=== PATIENT | female | born 1945 | race Caucasian/White ===

== ENCOUNTER → 2016-03-28 | Outpatient (CLI) | payer OTHER, MEDICARE ==
[~2016-03-28] MED LIST: ACET-1256 PO; AMLO-114 PO; APR25 PO; ASCO500C43 PO; ASPCH81X PO; ATV5X PO; BIOT1CAP3 PO; BISA5TAB PO; CHOL100027 PO; COEN1CAP17 PO; DOCU-94 PO; EFF75 PO; FENO145T26 PO; FERR1TAB23 PO; FOLI1TAB7 PO; FRS/40 PO; GABA-112 PO; GLIP10TA3 PO; HYDR2TAB48 PO; INSU3INJ3 SC; INSUINJ12 SC; ISOS60TA25 PO; LEVO88TA21 PO; LEVO88TA3 PO; MAGN400T6 PO; MCRK20 PO; METF-384 PO; MULTTAB58 PO; NITR0.4S UT; PLV75 PO; POTA20TA16 PO; POTA550T4 PO; PRLSR20 PO; ROSU40TA PO; SENN-63 PO; SOTA80TA55 PO; SPIR100T PO; VENL75CA73 PO; ZOLP5TAB6 PO
[2016-03-28 17:33] LABS: BASO % 0.6 %; BASO ABS # 0.05 K/uL (0-0.2); COMPLETE YES; EOS % 1.3 %; HEMATOCRIT 37.7 % (37-47); IG% 0.3 %; LYMPH % 25.2 %; LYMPH ABS # 2.01 K/uL (1.2-3.4); MEAN CELL VOLUME 87.7 fL (80-100); MEAN CORPUSCULAR HEMOGLOBIN 29.1 pg (25-34); MEAN CORPUSCULAR HGB CONC 33.2 g/dl (32-36); MEAN PLATELET VOLUME 10.7 fL (7.4-10.4); MONO % 8.6 %; PLATELET COUNT 427 K/uL (130-400); WHITE BLOOD COUNT 7.98 K/uL (4.8-10.8)
[2016-03-28 18:12] LABS: URINE PROTIEN/CREAT RATIO 1.6 (0-0.2); URINE TOTAL PROTEIN 238.7 mg/dl (0-11.9)
== END | disposition home or self-care (01) ==
LOC: C.LAB1850 16:15
PROVIDERS: ATTEND Internal Medicine
DX: R80.9 Proteinuria, unspecified (principal); E03.9 Hypothyroidism, unspecified; N28.9 Disorder of kidney and ureter, unspecified; E55.9 Vitamin D deficiency, unspecified

== ENCOUNTER → 2016-05-12 | Outpatient (CLI) | payer OTHER, MEDICARE ==
[~2016-05-12] MED LIST changes: +SOTA80TA20 PO; -SOTA80TA55 PO
== END | disposition home or self-care (01) ==
LOC: C.LABBFT 14:30
PROVIDERS: ATTEND Internal Medicine
DX: E03.9 Hypothyroidism, unspecified (principal)

== ENCOUNTER 2016-07-03 15:31 | Inpatient (IN) | payer OTHER, MEDICARE ==
[2016-07-03] VITALS (13 sets, daily range): BP systolic 114–145; BP diastolic 58–77; PULSE 87–95; TEMP 36.2–37.1; O2SAT 94–100; Ht 167.6 cm; Wt 68.2 kg
[~2016-07-03] VITALS: Ht 167.6 cm; Wt 68.2 kg
[~2016-07-03 15:31] MED LIST changes: -EFF75 PO; -INSU3INJ3 SC; -LEVO88TA3 PO; -POTA20TA16 PO
[2016-07-03] MEDS ORDERED: SODIUM CHLORIDE 0.9% 1000ML 1,000 ML IV STA (16:05)
[2016-07-03] MEDS ORDERED: FAMOTIDINE 20MG/102 ML D5W IV STA (16:05)
[2016-07-03] MEDS ORDERED: ONDANSETRON 8 MG/54 ML D5W IV STA (16:05)
[2016-07-03] MEDS ORDERED: ONDANSETRON INJ 2 MG/ML 2 ML VIAL ONE (16:19)
--- NOTE | 2016-07-03 16:22 | DIAGNOSTIC IMAGING REPORT ---
CHEST ONE VIEW PORTABLE CLINICAL HISTORY: EVALUATE GI BLEED dyspnea COMPARISON STUDY: 12/06/2015 FINDINGS: Prior median sternotomy. Diaphragms smooth. Lungs are clear. IMPRESSION: No acute process. Electronically signed by: Clarence Arevalo M.D. 07/03/2016 4:21 PM Dictated Date/Time: 07/03/2016 4:20 PM
[2016-07-03] MEDS ORDERED: PANTOprazole INJ 80 MG in DEXTROSE 5% 100ML IV SCH (16:30)
[2016-07-03] MEDS ORDERED: PANTOprazole INJ 40 MG in DEXTROSE 5% 100ML IV SCH (16:45)
[2016-07-03] MEDS ORDERED: METOCLOPRAMIDE HCL INJ 5 MG/ML 2 ML VIAL IV STA ×2 (16:50→17:34)
[2016-07-03 16:52] LABS: BASO % 0.2 %; BASO ABS # 0.03 K/uL (0-0.2); EOS % 0.1 %; IG% 0.7 %; LYMPH % 11.6 %; LYMPH ABS # 1.61 K/uL (1.2-3.4); MEAN CELL VOLUME 85.5 fL (80-100); MEAN CORPUSCULAR HEMOGLOBIN 28.3 pg (25-34); MEAN PLATELET VOLUME 10.6 fL (7.4-10.4); MONO % 6.1 %; NEUT % 81.3 %; PLATELET COUNT 337 K/uL (130-400); RED BLOOD COUNT 2.69 M/uL (4.2-5.4); WHITE BLOOD COUNT 13.87 K/uL (4.8-10.8)
[2016-07-03] MEDS: HYDROmorphone INJ 1 MG/ML SYR IV PRN ×5 (17:00→22:53)
[2016-07-03 17:02] LABS: INR 1.1 (0.9-1.1); PARTIAL THROMBOPLASTIN RATIO 0.7; PROTHROMBIN TIME (PATIENT) 11.9 SECONDS (9.0-12.0)
[2016-07-03] MEDS ORDERED: LEVO88TA3 PO (17:07)
[2016-07-03] MEDS ORDERED: EFF75 PO (17:07)
[2016-07-03] MEDS ORDERED: INSU3INJ3 SC (17:07)
[2016-07-03] MEDS ORDERED: POTA20TA16 PO (17:07)
[2016-07-03 17:10] LABS: ISTAT HEMOGLOBIN 6.8 g/dl (12.0-16.0); ISTAT IONIZED CALCIUM 1.09 mmol/l (1.12-1.32)
[2016-07-03 17:11] LABS: ANISOCYTOSIS PRESENT; COMPLETE YES; HYPOCHROMIA PRESENT; POLYCHROMASIA 1+
[2016-07-03 17:21] LABS: ALKALINE PHOSPHATASE 55 U/L (45-117); ALT/SGPT 27 U/L (12-78); BLOOD UREA NITROGEN 59 mg/dl (7-18); BUN/CREATININE RATIO 53.2 (10-20); CALCIUM 8.5 mg/dl (8.5-10.1); CARBON DIOXIDE 23 mmol/L (21-32); CHLORIDE 102 mmol/L (98-107); GLUCOSE 270 mg/dl (70-99)
[2016-07-03 17:24] LABS: POTASSIUM 4.3 mmol/L (3.5-5.1); SODIUM 137 mmol/L (136-145)
[2016-07-03 17:32] LABS: AST/SGOT 19 U/L (15-37); CKMB/CK RATIO 2.6 (0-3.0)
--- NOTE | 2016-07-03 17:52 | DIAGNOSTIC IMAGING REPORT ---
CT OF THE ABDOMEN AND PELVIS WITHOUT CONTRAST CLINICAL HISTORY: Vomiting. Abdominal pain. GI bleed. COMPARISON STUDY: Renal ultrasound August 06, 2015 and right upper quadrant ultrasound October 17, 2015. TECHNIQUE: Axial images of the abdomen and pelvis were obtained without IV contrast. Images were reviewed in the axial, sagittal, and coronal planes. FINDINGS: Visualized portions of the lower chest demonstrate mild cardiomegaly and a small hiatal hernia. There is no pneumatosis, free air or portal venous gas. Minimal biliary ductal dilatation is likely due to prior cholecystectomy. Evaluation of the abdomen and pelvis is significantly compromised given the lack of IV and oral contrast. There is no evidence for a bowel obstruction. The appendix is normal. Apparent wall thickening of the left colon is likely due to underdistention. There is no definite CT evidence for colitis. Sensitivity for detection of mucosal lesions is diminished given CT technique. There is no hydronephrosis. There are stents within the bilateral renal arteries and the celiac axis. This extensive atherosclerotic plaque of the abdominal aorta at the at the level of the renal arteries. There is suspected occlusion of the abdominal aorta at this level as well as occlusion of the SMA although these vessels are suboptimally assessed on this unenhanced exam. No lymphadenopathy is present. No suspicious skeletal lesions are identified. IMPRESSION: 1. No acute process within the abdomen although evaluation compromised given the lack of contrast. 2. Extensive atherosclerotic plaque within the abdominal aorta and major branch vessels with suspected occlusion of the abdominal aorta due to calcified plaque at the level the renal arteries as well as suspected occlusion of the SMA. Vessel patency is difficult to assess on this unenhanced exam. 3. Apparent wall thickening of the left colon is likely due to underdistention. A nonspecific colitis is considered less likely. No definite bowel wall thickening. No pneumatosis, free air or portal venous gas. Decreased sensitivity for detection of mucosal lesions given CT technique. Electronically signed by: Roberto Hyman M.D. 07/03/2016 5:51 PM Dictated Date/Time: 07/03/2016 5:42 PM
[2016-07-03] MEDS ORDERED: NITROGLYCERIN 0.4 MG SL PER TAB CHARGE SL PRN (18:30)
[2016-07-03] MEDS ORDERED: ALUMINUM/MAGNESIUM/SIMETH (MAALOX MAX) 30 ML UDC PO PRN (18:30)
[2016-07-03] MEDS ORDERED: METOPROLOL TARTRATE 1 MG/ML VIAL IV PRN (18:30)
[2016-07-03] MEDS ORDERED: LORAZEPAM 2 MG/ML 1 ML VIAL IV PRN (18:30)
[2016-07-03] MEDS ORDERED: HydrALAZINE HCL 20 MG/ML VIAL IV. PRN (18:30)
[2016-07-03] MEDS ORDERED: POLYETHYLENE (MIRALAX) 17 GM PACK PO PRN (18:30)
[2016-07-03] MEDS ORDERED: MAGNESIUM HYDROXIDE SUSP 30 ML UDC PO PRN (18:30)
--- NOTE | 2016-07-03 18:57 | History and Physical ---
History & Physical Date & Time of Service: July 03, 2016 at 18:36 Chief Complaint: Vomiting Primary Care Physician: Henry Naqvi M.D. History of Present Illness Source: patient, family, clinic records, hospital records 71 y/o female, with PMHx of HTN, anemia, diastolic CHF, CAD s/p CAGB, NSTEMI, paroxysmal a.fib, T2DM, hyperlipidemia, PVD, carotid stenosis s/o carotid endarterectomy, anxiety, and GERD, who presented to the ED because of coffee ground emesis and dark stools x1 day. Episodes of dark emesis and stools begin last evening. Patient takes a daily iron supplement, but states stools have darken since last evening. She takes Plavix and ASA daily. She denies excessive NSAID or alcohol use. She drinks 3-4 cups of coffee per day. She does have a history of GERD. She denies history of PUD or GI bleed. Patient has chronic bilateral lower extremity pain, which has worsened greatly since last evening. Patient denies any fever, chills, sweats, lightheadedness, dizziness, vision changes, CP, palpitations, edema, SOB, wheezing, cough, abdominal pain, nausea, diarrhea, urinary symptoms, numbness/tingling, weakness, anxiety/depression, active bleeding, or new skin discoloration/changes. Past Medical/Surgical History Medical Problems: HTN iron deficiency anemia diastolic CHF CAD s/p CAGB NSTEMI paroxysmal a.fib T2DM hyperlipidemia PVD carotid stenosis s/o carotid endarterectomy anxiety GERD Family History Hypertension Social History Smoking Status: Former Smoker Drug Use: none Marital Status: Occupational Status: employed Immunizations History of Influenza Vaccine: Yes History of Tetanus Vaccine?: Yes History of Pneumococcal: Yes History of Hepatitis B Vaccine: Yes Multi-Drug Resistant Organisms History of MDRO: No Allergies Coded Allergies: Lisinopril (Verified Allergy, Severe, CAN NOT WALK, 12/08/15) Losartan (Verified Allergy, Severe, CAN NOT WALK, 12/08/15) Oxycodone (Verified Adverse Reaction, Unknown, NAUSEA/VOMITING, 06/04/15) Tramadol (Verified Adverse Reaction, Unknown, NAUSEA/VOMITING, 06/04/15) Home Medications Scheduled Amlodipine (Norvasc), 10 MG PO QPM Aspirin (Aspirin Chewable), 324 MG PO QAM Biotin (Biotin), 2 CAP PO BID Bisacodyl (Correctol), 15 MG PO QAM Cholecalciferol (Vitamin D 1000 Unit), 1,000 INTER.UNIT PO BID Clopidogrel Bisulfate (Clopidogrel), 75 MG PO DAILY Coenzyme Q10 (Ubidecarenone) (Co Q 10), 100 MG PO DAILY Docusate Sodium (Colace), 100 MG PO BID Fenofibrate (Tricor ), 145 MG PO QAM Ferrous Sulfate (Iron), 325 MG PO DAILY Folic Acid (Folvite), 1 MG PO QAM Furosemide (Lasix), 40 MG PO Q2D Furosemide (Lasix), 80 MG PO Q2D Gabapentin (Neurontin), 100 MG PO TID Glipizide (Glucotrol), 10 MG PO BID Hydralazine Hcl (Apresoline), 25 MG PO TID Insulin Detemir (Levemir Flextouch), 5 UNITS SC BID Isosorbide Mononitrate Ext Rel (Imdur Ext Rel), 3 TABS PO DAILY Levothyroxine Sodium (Levothyroxine Sodium), 88 MCG PO DAILY Magnesium Oxide (Mag-Ox), 400 MG PO BID Metformin Hcl (Glucophage), 1,000 MG PO BID Multiple Vitamin (Multivitamin), 1 TAB PO QAM Omeprazole (Prilosec), 20 MG PO QAM Potassium Ext Rel (Klor-Con), 20 MEQ PO BID Rosuvastatin Calcium (Crestor), 40 MG PO HS Sotalol Hcl (Betapace), 40 MG PO Q12 Spironolactone (Aldactone), 100 MG PO QAM Venlafaxine Hcl (Effexor), 75 MG PO DAILY Scheduled PRN Acetaminophen (Tylenol), 500 MG PO Q6 PRN for Pain Hydromorphone Hcl (Dilaudid), 2 MG PO q3 hours PRN for Pain Lorazepam (Lorazepam), 0.5 MG PO Q8 PRN for Anxiety Nitroglycerin (Nitrostat), 0.4 MG UT UD PRN for Chest Pain Sennosides (Senokot), 1 TAB PO QAM PRN for Constipation Zolpidem Tartrate (Zolpidem Tartrate), 5 MG PO HS PRN for Sleep Physical Exam Vital Signs Date Time Temp Pulse Resp B/P Pulse Ox O2 Delivery O2 Flow Rate FiO2 07/03/16 18:23 91 20 128/60 99 Nasal Cannula 2.0 07/03/16 18:17 100 Room Air 07/03/16 17:52 93 16 114/64 100 Room Air 07/03/16 17:15 77 24 108/50 07/03/16 16:35 73 07/03/16 15:59 100 Room Air 07/03/16 15:37 37.1 84 18 115/90 100 Room Air General Appearance: + mild distress Head: normocephalic, atraumatic Eyes: normal inspection, PERRL ENT: hearing grossly normal Neck: supple Respiratory/Chest: lungs clear, no respiratory distress, no accessory muscle use Cardiovascular: regular rate, rhythm, + systolic murmur Abdomen/GI: normal bowel sounds, non tender, soft Extremities/Musculoskelatal: no calf tenderness, no pedal edema, + pertinent finding (lower extremities cool to touch ) Neurologic/Psych: alert, normal mood/affect, oriented x 3 Skin: warm/dry, no rash, + pallor Diagnostics Laboratory Results Results Past 24 Hours Test 07/03/16 16:30 07/03/16 16:48 Range/Units White Blood Count 13.87 4.8-10.8 K/uL Red Blood Count 2.69 4.2-5.4 M/uL Hemoglobin 7.6 12.0-16.0 g/dL Hematocrit 23.0 37-47 % Mean Corpuscular Volume 85.5 80-100 fL Mean Corpuscular Hemoglobin 28.3 25-34 pg Mean Corpuscular Hemoglobin Concent 33.0 32-36 g/dl Platelet Count 337 130-400 K/uL Mean Platelet Volume 10.6 7.4-10.4 fL Neutrophils (%) (Auto) 81.3 % Lymphocytes (%) (Auto) 11.6 % Monocytes (%) (Auto) 6.1 % Eosinophils (%) (Auto) 0.1 % Basophils (%) (Auto) 0.2 % Neutrophils # (Auto) 11.27 1.4-6.5 K/uL Lymphocytes # (Auto) 1.61 1.2-3.4 K/uL Monocytes # (Auto) 0.85 0.11-0.59 K/uL Eosinophils # (Auto) 0.01 0-0.5 K/uL Basophils # (Auto) 0.03 0-0.2 K/uL RDW Standard Deviation 41.4 36.4-46.3 fL RDW Coefficient of Variation 13.5 11.5-14.5 % Immature Granulocyte % (Auto) 0.7 % Immature Granulocyte # (Auto) 0.10 0.00-0.02 K/uL Polychromasia 1+ Hypochromasia PRESENT Anisocytosis PRESENT Prothrombin Time 11.9 9.0-12.0 SECONDS Prothromb Time International Ratio 1.1 0.9-1.1 Activated Partial Thromboplast Time 18.0 21.0-31.0 SECONDS Partial Thromboplastin Ratio 0.7 Sodium Level 137 136-145 mmol/L Potassium Level 4.3 3.5-5.1 mmol/L Chloride Level 102 98-107 mmol/L Carbon Dioxide Level 23 21-32 mmol/L Anion Gap 12.0 17.0 16-25 mmol/L Blood Urea Nitrogen 59 7-18 mg/dl Creatinine 1.10 0.60-1.20 mg/dl Est Creatinine Clear Calc Drug Dose 44.5 ml/min Estimated GFR () 58.9 Estimated GFR (Non- 50.8 BUN/Creatinine Ratio 53.2 10-20 Random Glucose 270 70-99 mg/dl Calcium Level 8.5 8.5-10.1 mg/dl Total Bilirubin 0.3 0.2-1 mg/dl Direct Bilirubin < 0.1 0-0.2 mg/dl Aspartate Amino Transf (AST/SGOT) 19 15-37 U/L Alanine Aminotransferase (ALT/SGPT) 27 12-78 U/L Alkaline Phosphatase 55 45-117 U/L Total Creatine Kinase 38 26-192 U/L Creatine Kinase MB 1.0 0.5-3.6 ng/ml Creatine Kinase MB Ratio 2.6 0-3.0 Troponin I < 0.015 0-0.045 ng/ml Total Protein 5.9 6.4-8.2 gm/dl Albumin 2.8 3.4-5.0 gm/dl Lipase 177 73-393 U/L Bedside Hemoglobin 6.8 12.0-16.0 g/dl Bedside Hematocrit 20 37-47 % Bedside Sodium 133 135-144 mEq/L Bedside Potassium 5.6 3.3-5.0 mEq/L Bedside Chloride 99 101-112 mEq/L Bedside Total CO2 24 24-31 mEq/l Bedside Blood Urea Nitrogen 68 7-18 mg/dl Bedside Creatinine 1.0 0.6-1.3 mg/dl Bedside Glucose (other) 274 70-99 mg/dl Bedside Ionized Calcium (Mic) 1.09 1.12-1.32 mmol/l Diagnostic Radiology CHEST ONE VIEW PORTABLE CLINICAL HISTORY: EVALUATE GI BLEED dyspnea COMPARISON STUDY: 12/06/2015 FINDINGS: Prior median sternotomy. Diaphragms smooth. Lungs are clear. IMPRESSION: No acute process. Electronically signed by: Clarence Arevalo M.D. 07/03/2016 4:21 PM Dictated Date/Time: 07/03/2016 4:20 PM The status of this report is Signed. Draft = Not yet reviewed or approved by Radiologist. Signed = Reviewed and approved by Radiologist. CT OF THE ABDOMEN AND PELVIS WITHOUT CONTRAST CLINICAL HISTORY: Vomiting. Abdominal pain. GI bleed. COMPARISON STUDY: Renal ultrasound August 06, 2015 and right upper quadrant ultrasound October 17, 2015. TECHNIQUE: Axial images of the abdomen and pelvis were obtained without IV contrast. Images were reviewed in the axial, sagittal, and coronal planes. FINDINGS: Visualized portions of the lower chest demonstrate mild cardiomegaly and a small hiatal hernia. There is no pneumatosis, free air or portal venous gas. Minimal biliary ductal dilatation is likely due to prior cholecystectomy. Evaluation of the abdomen and pelvis is significantly compromised given the lack of IV and oral contrast. There is no evidence for a bowel obstruction. The appendix is normal. Apparent wall thickening of the left colon is likely due to underdistention. There is no definite CT evidence for colitis. Sensitivity for detection of mucosal lesions is diminished given CT technique. There is no hydronephrosis. There are stents within the bilateral renal arteries and the celiac axis. This extensive atherosclerotic plaque of the abdominal aorta at the at the level of the renal arteries. There is suspected occlusion of the abdominal aorta at this level as well as occlusion of the SMA although these vessels are suboptimally assessed on this unenhanced exam. No lymphadenopathy is present. No suspicious skeletal lesions are identified. IMPRESSION: 1. No acute process within the abdomen although evaluation compromised given the lack of contrast. 2. Extensive atherosclerotic plaque within the abdominal aorta and major branch vessels with suspected occlusion of the abdominal aorta due to calcified plaque at the level the renal arteries as well as suspected occlusion of the SMA. Vessel patency is difficult to assess on this unenhanced exam. 3. Apparent wall thickening of the left colon is likely due to underdistention. A nonspecific colitis is considered less likely. No definite bowel wall thickening. No pneumatosis, free air or portal venous gas. Decreased sensitivity for detection of mucosal lesions given CT technique. Electronically signed by: Roberto Hyman M.D. 07/03/2016 5:51 PM Dictated Date/Time: 07/03/2016 5:42 PM The status of this report is Signed. Draft = Not yet reviewed or approved by Radiologist. Signed = Reviewed and approved by Radiologist. EKG CHRIS BENNETT ID:[id number] 03-JUL-2016 15:59:07 [facility] Normal sinus rhythm ST & T wave abnormality, consider lateral ischemia Prolonged QT Abnormal ECG When compared with ECG of 08-DEC-2015 21:57, Premature ventricular complexes are no longer Present Premature atrial complexes are no longer Present Criteria for Inferior infarct are no longer Present T wave inversion no longer evident in Inferior leads Confirmed by Bernardo Gibbons ([id number]) on 07/03/2016 6:34:06 PM 25mm/s 10mm/mV 150Hz 8.0 SP2 12SL 241 ARLET: 0 Referred by: ED Confirmed By: Bernardo Jimenez. rate 79 BPM NH interval 156 ms QRS duration 82 ms QT/QTc 432/495 ms P-R-T axes 71 -22 132 1945 (71 yr) Female 73in 1lb Room:[facility] Loc:15 Typesetting Supervisor:CEASAR Estrada ind: Impression Assessment and Plan 71 y/o female, with PMHx of HTN, anemia, diastolic CHF, CAD s/p CAGB, NSTEMI, paroxysmal a.fib, T2DM, hyperlipidemia, PVD, carotid stenosis s/o carotid endarterectomy, anxiety, and GERD, who presented to the ED because of coffee ground emesis and dark stools x1 day Anemia due GI bleed w/ hgb of 7.6 on admission: - Admit to tele for cardiac monitoring - Trend cardiac enzymes - Hemoccult positive per ED physician - NPO - IV Protonix drip - Transfusion of 2 units pRBC started in ED - Follow H&H q6 hrs and transfuse PRN - GI consulted, appreciate recommendations Diastolic CHF/CAD s/p CAGB/NSTEMI/paroxysmal a.fib: - Lasix 40 mg Q2D and 80 mg Q2D held due to NPO status- will not add IV Lasix at this time due to low-normal BPs - Hold Imdur 3 tabs PO daily, Sotalol 40 mg q12 hrs, Aldactone 100 mg daily due to NPO status - IV 5 mg Lopressor PRN q6 hrs T2DM: - Continue Levemir 5 units BID - BSG ACHS w/ sliding insulin scale - Hold Glipizide 10 mg BID, Metformin 1000 mg BID HTN: - Norvasc 10 mg daily, Hydralazine 25 mg TID held due to NPO status- resume when able - IV Hydralazine 10 mg PRN Hyperlipidemia/PVD/carotid stenosis s/o carotid endarterectomy: - Hold Fenofibrate 145 mg daily due to NPO status - Hold Plavix 75 mg daily and ASA due to GI bleed - Hold home PO pain medications - IV Dilaudid PRN for pain management Hypothyroidism: IV Synthroid [address] of 88 mcg PO daily Chronic iron deficiency anemia: Iron supplement held due to NPO status Anxiety: - IV Ativan 0.5 mg q6 hrs PRN - Effexor 754 mg daily held due to NPO status GERD: IV Protonix GI Prophylaxis: Maalox PRN, IV Zofran PRN, Colace and/or Milk of Mag PRN DVT prophylaxis: TEDs and SCDs, chemical therapy contraindicated due to GI bleed Code Status: LEVEL I, FULL Level of Care Telemetry Advanced Directives Existing Living Will: Yes Existing Power of Corporate Director Of Human Resources: Yes Resuscitation Status FULL RESUSCITATION VTE Prophylaxis VTE Risk Assessment Done? Y/N: Yes Risk Level: Moderate Given or contraindicated: T.E.D. Stockings, SCD's, Contraindicated
[2016-07-03] MEDS ORDERED: DEXTROSE 50% 50 ML SYR IV PRN (19:00)
[2016-07-03] MEDS ORDERED: GLUCOSE 40% GEL 15 GM TUBE PO PRN (19:00)
[2016-07-03] MEDS ORDERED: GLUCAGON FOR INJ 1 MG VIAL SQ PRN (19:00)
[2016-07-03] MEDS ORDERED: GLUCOSE 10 TABS/TUBE PO PRN (19:00)
--- NOTE | 2016-07-03 19:46 | EMERGENCY ROOM VISIT NOTE ---
History Report prepared by Rosendo: Zack Huntley Under the Supervision of: Dr. Rupert Bates M.D. First contact with patient: 16:05 Chief Complaint: ABDOMINAL PAIN Stated Complaint: VOMITING Nursing Triage Summary: Pt arrives by ALS from home for n/v since 1999 last night. Pt also c/o chronic bilateral leg pain, circulatory issues. Pt took a Dilaudid at home, no relief. Medicated with SL Zofran an route. Hx of RI History of Present Illness The patient is a 71 year old female who presents to the Emergency Room with complaints of persistent nausea and vomiting that began last night at 0000, 16 hours prior to arrival. The patient states that she has been having black emesis and black stools recently. She admits that her stool is usually dark due to iron infusions, but this was much darker than usual. She notes that her stool and emesis were the same color. She takes both Aspirin and Plavix daily. The patient also experiencing pain in her legs due to peripheral artery disease and only has 30% blood flow to her legs. This pain is chronic and takes Dilaudid as needed. The patient denies LOC, headache, fevers, chills, diaphoresis, visual changes, neck pain, chest pain, breathing difficulties, abdominal pain, back pain, urinary symptoms, numbness, weakness, lymphadenopathy, rash, or other complaints. The patient has had multiple heart attacks in the past as well as coronary bypass, diabetes, and a cholecystectomy. Source of History: patient Onset: 16 hours FUR BU[employer]ER Position: other (GI) Quality: other (Nausea and vomiting) Timing: other (Persistent) Associated Symptoms: + melena Note: Black emesis. Review of Systems See HPI for pertinent positives and negatives. A total of ten systems were reviewed and were otherwise negative. 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 (3) ATRIAL FIBRILLATION (4) Chest pain (5) CHOLELITH W CHOLECYS NEC (6) CORON ATHEROSCLER NOS TYPE VESSEL, PECHANGA OR GRAFT (7) DIAB DIPESH WO COMPL, TYPE II OR UNSPEC TYPE, UNCONTROLLED (8) Diabetic peripheral neuropathy associated with type 2 diabetes mellitus (9) ESOPHAGEAL REFLUX (10) GI bleed (11) HYPERLIPIDEMIA NEC/NOS (12) HYPERTENSION NOS (13) Loss of sensation (14) NSTEMI (non-ST elevated myocardial infarction) (15) PVD (peripheral vascular disease) Family History Hypertension Social History Smoking Status: Former Smoker Drug Use: none Marital Status: Housing Status: lives with family Occupation Status: employed Current/Historical Medications Scheduled Amlodipine (Norvasc), 10 MG PO QPM Aspirin (Aspirin Chewable), 324 MG PO QAM Biotin (Biotin), 2 CAP PO BID Bisacodyl (Correctol), 15 MG PO QAM Cholecalciferol (Vitamin D 1000 Unit), 1,000 INTER.UNIT PO BID Clopidogrel Bisulfate (Clopidogrel), 75 MG PO DAILY Coenzyme Q10 (Ubidecarenone) (Co Q 10), 100 MG PO DAILY Docusate Sodium (Colace), 100 MG PO BID Fenofibrate (Tricor ), 145 MG PO QAM Ferrous Sulfate (Iron), 325 MG PO DAILY Folic Acid (Folvite), 1 MG PO QAM Furosemide (Lasix), 40 MG PO Q2D Furosemide (Lasix), 80 MG PO Q2D Gabapentin (Neurontin), 100 MG PO TID Glipizide (Glucotrol), 10 MG PO BID Hydralazine Hcl (Apresoline), 25 MG PO TID Insulin Detemir (Levemir Flextouch), 5 UNITS SC BID Isosorbide Mononitrate Ext Rel (Imdur Ext Rel), 3 TABS PO DAILY Levothyroxine Sodium (Levothyroxine Sodium), 88 MCG PO DAILY Magnesium Oxide (Mag-Ox), 400 MG PO BID Metformin Hcl (Glucophage), 1,000 MG PO BID Multiple Vitamin (Multivitamin), 1 TAB PO QAM Omeprazole (Prilosec), 20 MG PO QAM Potassium Ext Rel (Klor-Con), 20 MEQ PO BID Rosuvastatin Calcium (Crestor), 40 MG PO HS Sotalol Hcl (Betapace), 40 MG PO Q12 Spironolactone (Aldactone), 100 MG PO QAM Venlafaxine Hcl (Effexor), 75 MG PO DAILY Scheduled PRN Acetaminophen (Tylenol), 500 MG PO Q6 PRN for Pain Hydromorphone Hcl (Dilaudid), 2 MG PO q3 hours PRN for Pain Lorazepam (Lorazepam), 0.5 MG PO Q8 PRN for Anxiety Nitroglycerin (Nitrostat), 0.4 MG UT UD PRN for Chest Pain Sennosides (Senokot), 1 TAB PO QAM PRN for Constipation Zolpidem Tartrate (Zolpidem Tartrate), 5 MG PO HS PRN for Sleep Allergies Coded Allergies: Lisinopril (Verified Allergy, Severe, CAN NOT WALK, 12/08/15) Losartan (Verified Allergy, Severe, CAN NOT WALK, 12/08/15) Oxycodone (Verified Adverse Reaction, Unknown, NAUSEA/VOMITING, 06/04/15) Tramadol (Verified Adverse Reaction, Unknown, NAUSEA/VOMITING, 06/04/15) Physical Exam Vital Signs Date Time Temp Pulse Resp B/P Pulse Ox O2 Delivery O2 Flow Rate FiO2 07/03/16 19:41 36.6 90 16 114/58 97 2.0 07/03/16 18:49 88 16 127/58 100 Room Air 07/03/16 18:23 91 20 128/60 99 Nasal Cannula 2.0 07/03/16 18:17 100 Room Air 07/03/16 17:52 93 16 114/64 100 Room Air 07/03/16 17:15 77 24 108/50 07/03/16 16:35 73 07/03/16 15:59 100 Room Air 07/03/16 15:37 37.1 84 18 115/90 100 Room Air Physical Exam GENERAL: Awake, alert, Pale, uncomfortable appearing. HENT: Normocephalic, atraumatic. Oropharynx unremarkable. EYES: Normal conjunctiva. Sclera non-icteric. NECK: Supple. No nuchal rigidity. FROM. No JVD. RESPIRATORY: Clear to auscultation. CARDIAC: Regular rate, normal rhythm. Extremities warm and well perfused. Pulses equal. ABDOMEN: Soft, non-distended. No tenderness to palpation. No rebound or guarding. No masses. RECTAL: Deferred. MUSCULOSKELETAL: Chest examination reveals no tenderness. The back is symmetrical on inspection without obvious abnormality. There is no CVA tenderness to palpation. No joint edema. LOWER EXTREMITIES: Calves are equal size bilaterally and non-tender. No edema. No discoloration. NEURO: Normal sensorium. No sensory or motor deficits noted. SKIN: No rash or jaundice noted. RECTAL: Black stool heme positive. Medical Decision & Procedures ER Provider Diagnostic Interpretation: Radiology results as stated below per my review and radiologist interpretation: CT OF THE ABDOMEN AND PELVIS WITHOUT CONTRAST CLINICAL HISTORY: Vomiting. Abdominal pain. GI bleed. COMPARISON STUDY: Renal ultrasound August 06, 2015 and right upper quadrant ultrasound October 17, 2015. TECHNIQUE: Axial images of the abdomen and pelvis were obtained without IV contrast. Images were reviewed in the axial, sagittal, and coronal planes. FINDINGS: Visualized portions of the lower chest demonstrate mild cardiomegaly and a small hiatal hernia. There is no pneumatosis, free air or portal venous gas. Minimal biliary ductal dilatation is likely due to prior cholecystectomy. Evaluation of the abdomen and pelvis is significantly compromised given the lack of IV and oral contrast. There is no evidence for a bowel obstruction. The appendix is normal. Apparent wall thickening of the left colon is likely due to underdistention. There is no definite CT evidence for colitis. Sensitivity for detection of mucosal lesions is diminished given CT technique. There is no hydronephrosis. There are stents within the bilateral renal arteries and the celiac axis. This extensive atherosclerotic plaque of the abdominal aorta at the at the level of the renal arteries. There is suspected occlusion of the abdominal aorta at this level as well as occlusion of the SMA although these vessels are suboptimally assessed on this unenhanced exam. No lymphadenopathy is present. No suspicious skeletal lesions are identified. IMPRESSION: 1. No acute process within the abdomen although evaluation compromised given the lack of contrast. 2. Extensive atherosclerotic plaque within the abdominal aorta and major branch vessels with suspected occlusion of the abdominal aorta due to calcified plaque at the level the renal arteries as well as suspected occlusion of the SMA. Vessel patency is difficult to assess on this unenhanced exam. 3. Apparent wall thickening of the left colon is likely due to underdistention. A nonspecific colitis is considered less likely. No definite bowel wall thickening. No pneumatosis, free air or portal venous gas. Decreased sensitivity for detection of mucosal lesions given CT technique. Electronically signed by: Roberto Hyman M.D. 07/03/2016 5:51 PM Dictated Date/Time: 07/03/2016 5:42 PM CHEST ONE VIEW PORTABLE CLINICAL HISTORY: EVALUATE GI BLEED dyspnea COMPARISON STUDY: 12/06/2015 FINDINGS: Prior median sternotomy. Diaphragms smooth. Lungs are clear. IMPRESSION: No acute process. Electronically signed by: Clarence Arevalo M.D. 07/03/2016 4:21 PM Dictated Date/Time: 07/03/2016 4:20 PM Laboratory Results 07/03/16 16:30 Red Blood Count 2.69, Mean Corpuscular Volume 85.5, Mean Corpuscular Hemoglobin 28.3, Mean Corpuscular Hemoglobin Concent 33.0, Mean Platelet Volume 10.6, Neutrophils (%) (Auto) 81.3, Lymphocytes (%) (Auto) 11.6, Monocytes (%) (Auto) 6.1, Eosinophils (%) (Auto) 0.1, Basophils (%) (Auto) 0.2, Neutrophils # (Auto) 11.27, Lymphocytes # (Auto) 1.61, Monocytes # (Auto) 0.85, Eosinophils # (Auto) 0.01, Basophils # (Auto) 0.03 Test 07/03/16 16:30 07/03/16 16:48 07/03/16 19:30 07/03/16 19:39 White Blood Count 13.87 K/uL (4.8-10.8) Red Blood Count 2.69 M/uL (4.2-5.4) Hemoglobin 7.6 g/dL (12.0-16.0) Hematocrit 23.0 % (37-47) Mean Corpuscular Volume 85.5 fL (80-100) Mean Corpuscular Hemoglobin 28.3 pg (25-34) Mean Corpuscular Hemoglobin Concent 33.0 g/dl (32-36) Platelet Count 337 K/uL (130-400) Mean Platelet Volume 10.6 fL (7.4-10.4) Neutrophils (%) (Auto) 81.3 % Lymphocytes (%) (Auto) 11.6 % Monocytes (%) (Auto) 6.1 % Eosinophils (%) (Auto) 0.1 % Basophils (%) (Auto) 0.2 % Neutrophils # (Auto) 11.27 K/uL (1.4-6.5) Lymphocytes # (Auto) 1.61 K/uL (1.2-3.4) Monocytes # (Auto) 0.85 K/uL (0.11-0.59) Eosinophils # (Auto) 0.01 K/uL (0-0.5) Basophils # (Auto) 0.03 K/uL (0-0.2) RDW Standard Deviation 41.4 fL (36.4-46.3) RDW Coefficient of Variation 13.5 % (11.5-14.5) Immature Granulocyte % (Auto) 0.7 % Immature Granulocyte # (Auto) 0.10 K/uL (0.00-0.02) Polychromasia 1+ Hypochromasia PRESENT Anisocytosis PRESENT Prothrombin Time 11.9 SECONDS (9.0-12.0) Prothromb Time International Ratio 1.1 (0.9-1.1) Activated Partial Thromboplast Time 18.0 SECONDS (21.0-31.0) Partial Thromboplastin Ratio 0.7 Est Creatinine Clear Calc Drug Dose 44.5 ml/min Total Bilirubin 0.3 mg/dl (0.2-1) Direct Bilirubin < 0.1 mg/dl (0-0.2) Aspartate Amino Transf (AST/SGOT) 19 U/L (15-37) Alanine Aminotransferase (ALT/SGPT) 27 U/L (12-78) Alkaline Phosphatase 55 U/L (45-117) Total Creatine Kinase 38 U/L (26-192) Total Protein 5.9 gm/dl (6.4-8.2) Albumin 2.8 gm/dl (3.4-5.0) Lipase 177 U/L (73-393) Bedside Hemoglobin 6.8 g/dl (12.0-16.0) Bedside Hematocrit 20 % (37-47) Bedside Sodium 133 mEq/L (135-144) Bedside Potassium 5.6 mEq/L (3.3-5.0) Bedside Chloride 99 mEq/L (101-112) Bedside Total CO2 24 mEq/l (24-31) Bedside Blood Urea Nitrogen 68 mg/dl (7-18) Bedside Creatinine 1.0 mg/dl (0.6-1.3) Bedside Glucose (other) 274 mg/dl (70-99) Bedside Ionized Calcium (Mic) 1.09 mmol/l (1.12-1.32) Creatine Kinase MB Ratio (0-3.0) Laboratory results reviewed by me Medications Administered Medications (Trade) Dose Ordered Sig/Angeles Route Start Time Stop Time Status Last Admin Dose Admin Sodium Chloride (Nss 1000ml) 1,000 ml @ 999 mls/hr Q1H1M STAT IV 07/03/16 16:05 07/03/16 17:05 DC 07/03/16 16:51 999 MLS/HR Famotidine 20 mg 20 mg ONE STAT IV 07/03/16 16:05 07/03/16 16:08 DC 07/03/16 16:51 20 MG Pantoprazole Sodium 80 mg/ Dextrose 120 ml @ 480 mls/hr TODAY@1630 IV 07/03/16 16:30 07/03/16 16:44 DC 07/03/16 16:49 480 MLS/HR Pantoprazole Sodium/Dextrose (Protonix Inj/D5 100ml) 100 ml @ 20 mls/hr Q5H IV 07/03/16 16:45 07/03/16 21:44 07/03/16 16:45 20 MLS/HR Ondansetron HCl (Zofran Inj) 4 mg STK-MED ONCE .ROUTE 07/03/16 16:19 07/03/16 16:20 DC 07/03/16 16:19 4 MG Metoclopramide HCl (Reglan Inj) 5 mg NOW STAT IV 07/03/16 16:50 07/03/16 16:52 DC 07/03/16 17:01 5 MG Hydromorphone HCl (Dilaudid Inj) 0.25 mg Q15M PRN IV 07/03/16 17:00 07/17/16 16:59 07/03/16 18:03 0.25 MG Metoclopramide HCl (Reglan Inj) 5 mg NOW STAT IV 07/03/16 17:34 07/03/16 17:36 DC 07/03/16 17:49 5 MG Hydromorphone HCl (Dilaudid Inj) 1 mg Q3H PRN IV 07/03/16 18:30 07/17/16 18:29 07/03/16 19:27 1 MG ECG Indication: vomiting Rate (beats per minute): 79 Findings: T-wave inversion (Lateral), prolonged QT, no ectopy ED Course 1619: The patient was evaluated in room A2. A complete history and physical exam was performed. 1605: Ordered Famotidine 20 mg IV, Pantoprazole 1 , Zofran 8 mg IV, Sodium Chloride 1000 mL @ 999 mL/hr IV. 1630: Ordered Pantoprazole 120 mL @ 480 mL/hr IV. 1645: Ordered Pantoprazole 100 mL @ 20 mL/hr IV. 1550: Ordered Reglan 5 mg IV. 1700: Ordered Dilaudid 0.25 mg . 1728: I checked on the patient at this time. She is back from CT. 173: Ordered Reglan 5 mg IV. 1735: The patient is having increased pain in her legs. She will receive a 2 unit transfusion. 175: I discussed the case with Dr. Radha Mendoza at this time. He will evaluate the patient for further treatment. 190: Patient was reassessed and is resting comfortably. Pending admission. Medical Decision Triage Nursing notes reviewed. The patient's presentation and history were concerning for possible GI bleed. Etiologies such as diverticulosis, AVM, coagulopathy, colitis, inflammatory bowel disease, malignancy,Marisol-Miller tear, esophagitis, peptic ulcer disease , variceal bleed, gastritis, epistaxis, fissure, hemorrhoids, as well as others were entertained. The patient was evaluated. She had dark stool as well as coffee-ground emesis. She was pale. This was very serious concerns about an upper GI bleed. Patient had an i-STAT performed and her hemoglobin was 6.8. This was concerning. The patient was consented for packed red cell transfusion. This was ordered. The patient had a mild leukocytosis. Chemistry panel is unremarkable. Patient was Hemoccult-positive from below. The patient was treated with multiple doses of antinausea medication, Protonix, Pepcid, and also when necessary doses of Dilaudid 0.25 mg for her leg pain. The patient was reassessed multiple times and gradually was improving. Consultation was made with internal medicine. The family and patient were informed. Patient was admitted for further management. The chart was completed utilizing [employer] Speech voice recognition software. Grammatical errors, random word insertions, pronoun errors, and incomplete sentences are an occasional consequence of this system due to software limitations, ambient noise, and hardware issues. Any formal questions or concerns about the content, text, or information contained within the body of this dictation should be directly addressed to the physician for clarification. Consults Time Called: 1748 Consulting Physician: Dr. Radha Mendoza Returned Call: [phone] I discussed the case with Dr. Radha Mendoza at this time. He will evaluate the patient for further treatment. Impression Primary Impression: Gastrointestinal bleed Critical Care I have personally spent greater than 30 minutes of critical care time in the direct management of this patient. This includes bedside care, interpretation of diagnostic studies, and testing, discussion with consultants, patient, and family members, and other required patient management activities. This 30 minutes is in excess of all separately billable procedures. Scribe Attestation The scribe's documentation has been prepared under my direction and personally reviewed by me in its entirety. I confirm that the note above accurately reflects all work, treatment, procedures, and medical decision making performed by me. Departure Information Dispostion Being Evaluated By Hospitalist Referrals Pro,Henry Almaguer M.D. (PCP) Patient Instructions [facility]
[2016-07-03 20:02] LABS: BLOOD UREA NITROGEN 52 mg/dl (7-18); BUN/CREATININE RATIO 55.8 (10-20); CALCIUM 8.3 mg/dl (8.5-10.1); CARBON DIOXIDE 24 mmol/L (21-32); CHLORIDE 104 mmol/L (98-107); CREATININE 0.94 mg/dl (0.60-1.20); GLUCOSE 316 mg/dl (70-99); POTASSIUM 3.8 mmol/L (3.5-5.1); SODIUM 138 mmol/L (136-145)
[2016-07-03] MEDS: ONDANSETRON INJ 2 MG/ML 2 ML VIAL IV PRN (20:23)
[2016-07-03 20:33] LABS: BETA-HYDROXYBUTYRATE 4.25 mg/dL (0.2-2.81)
[2016-07-03] MEDS: PANTOprazole INJ 40 MG in DEXTROSE 5% 100ML IV SCH (22:29)
[2016-07-03] MEDS: INSULIN DETEMIR FLEXPEN/FLEX TOUCH 100 UNITS/ML 3ML SC SCH (22:33)
[2016-07-03] MEDS: INSULIN ASPART 100 UNITS/ML 3 ML PEN SC SCH (22:33)
[2016-07-04 00:27] VITALS: BP 132/77; PULSE 93; TEMP 37; O2SAT 95
[2016-07-04 00:44] LABS: URINE APPEARANCE CLEAR (CLEAR); URINE BILIRUBIN NEG (NEG); URINE COLOR YELLOW; URINE EPITHELIAL CELL AUTO 0-5 /lpf (0-5); URINE NITRITE NEG (NEG); URINE PH 5.5 (4.5-7.5); URINE SPECIFIC GRAVITY 1.021 (1.000-1.030); UROBILINOGEN NEG (NEG)
[2016-07-04 01:02] LABS: MANUAL MICROSCOPIC REQUIRED? NO; REVIEW REQ? YES
[2016-07-04] MEDS: PANTOprazole INJ 40 MG in DEXTROSE 5% 100ML IV SCH ×2 (02:08→08:45)
[2016-07-04] MEDS: ONDANSETRON INJ 2 MG/ML 2 ML VIAL IV PRN ×2 (02:08→07:36)
[2016-07-04 03:10] LABS: HEMATOCRIT 30.5 % (37-47)
[2016-07-04 03:26] VITALS: BP 121/73; PULSE 92; TEMP 36.3; O2SAT 97
[2016-07-04] MEDS ORDERED: OPTIRAY 320 IV PRN (05:15)
[2016-07-04] MEDS ORDERED: SODIUM CHLORIDE 0.9% 1000ML 1,000 ML IV SCH (05:15)
[2016-07-04] MEDS ORDERED: NITROGLYCERIN 2% OINTMENT 30GM TUBE ONE (05:21)
[2016-07-04 05:25] LABS: HEMATOCRIT 29.6 % (37-47); MEAN CELL VOLUME 85.5 fL (80-100); MEAN CORPUSCULAR HEMOGLOBIN 28.6 pg (25-34); MEAN CORPUSCULAR HGB CONC 33.4 g/dl (32-36); MEAN PLATELET VOLUME 10.8 fL (7.4-10.4); PLATELET COUNT 320 K/uL (130-400); RED BLOOD COUNT 3.46 M/uL (4.2-5.4)
[2016-07-04] MEDS ORDERED: NITROGLYCERIN 2% OINTMENT 30GM TUBE EXT SCH (05:30)
[2016-07-04 05:43] LABS: BUN/CREATININE RATIO 42.5 (10-20); CALCIUM 8.6 mg/dl (8.5-10.1); CREATININE 1.1 mg/dl (0.60-1.20); MAGNESIUM 2.3 mg/dl (1.8-2.4); POTASSIUM 3.9 mmol/L (3.5-5.1)
[2016-07-04] MEDS ORDERED: PIPERACILL/TAZOBAC CONSULT ACTIVE PRN (06:15)
[2016-07-04] MEDS ORDERED: PIPERACILL/TAZOBAC IV 3.375 GM in DEXTROSE 5% 100ML 100 ML IV SCH ×2 (06:15→12:00)
[2016-07-04] MEDS ORDERED: VANCOMYCIN INJ 1,400 MG in SODIUM CHLORIDE 0.9% 500ML 500 ML IV SCH (06:15)
[2016-07-04] MEDS ORDERED: VANCOMYCIN CONSULT ACTIVE PRN (06:15)
--- NOTE | 2016-07-04 06:34 | DIAGNOSTIC IMAGING REPORT ---
CHEST ONE VIEW PORTABLE CLINICAL HISTORY: Abdominal pain COMPARISON STUDY: 07/03/2016 FINDINGS: The cardiac and mediastinal contours remain stable. There are postsurgical changes of midline sternotomy. There is evidence of diffuse elevation of the interstitium, finding which developed since the prior study. This is asymmetric on the right. The findings are suggestive of asymmetric interstitial edema. No free air is visualized. There is no lobar consolidation.[ IMPRESSION: 1. Interval development of asymmetric interstitial edema right greater than left 2. No evidence of free intraperitoneal air Electronically signed by: Medhat Fernandez M.D. 07/04/2016 6:33 AM Dictated Date/Time: 07/04/2016 6:32 AM
--- NOTE | 2016-07-04 06:57 | History and Physical ---
History & Physical Date & Time of Service: July 04, 2016 at 06:33 Chief Complaint: Gi Bleed Primary Care Physician: Henry Naqvi M.D. History of Present Illness Source: patient, spouse 71 y/o female, with PMHx of HTN, anemia, diastolic CHF, CAD s/p CAGB, NSTEMI, paroxysmal a.fib, T2DM, hyperlipidemia, PVD, carotid stenosis s/o carotid endarterectomy, anxiety, and GERD, who presented to the ED because of coffee ground emesis and dark stools x1 day. Episodes of dark emesis and stools begin last evening. Patient takes a daily iron supplement, but states stools have darken since last evening. She takes Plavix and ASA daily. She denies excessive NSAID or alcohol use. She drinks 3-4 cups of coffee per day. She does have a history of GERD. She denies history of PUD or GI bleed. Patient has chronic bilateral lower extremity pain, which has worsened greatly since last evening. Patient denies any fever, chills, sweats, lightheadedness, dizziness, vision changes, CP, palpitations, edema, SOB, wheezing, cough, abdominal pain, nausea, diarrhea, urinary symptoms, numbness/tingling, weakness, anxiety/depression, active bleeding, or new skin discoloration/changes. I got a call for consult this pt for abdominal pain, pt just came back from radiology for CTA, pt is still have some abdominal pain, no vomiting, pt also C/ O bilt legs pain, pt passed some dark color stool last night. pt took 4 ASA( 81MG) + plavix every day. Past Medical/Surgical History Medical Problems: (1) AORTOCORONARY BYPASS Status: Resolved (2) ATHEROSCL [place] ARTER EXTREM W INTERMIT CLAUDICAT Status: Chronic (3) ATRIAL FIBRILLATION Status: Chronic (4) CHOLELITH W CHOLECYS NEC Status: Resolved (5) CORON ATHEROSCLER NOS TYPE VESSEL, [place] OR GRAFT Status: Chronic (6) DIAB DIPESH WO COMPL, TYPE II OR UNSPEC TYPE, UNCONTROLLED Status: Chronic (7) ESOPHAGEAL REFLUX Status: Chronic (8) HYPERLIPIDEMIA NEC/NOS Status: Chronic (9) HYPERTENSION NOS Status: Chronic Family History Hypertension Social History Smoking Status: Former Smoker Alcohol Use: occasionally Drug Use: none Marital Status: Occupational Status: employed Immunizations History of Influenza Vaccine: Yes History of Tetanus Vaccine?: Yes History of Pneumococcal: Yes History of Hepatitis B Vaccine: Yes Multi-Drug Resistant Organisms History of MDRO: No Allergies Coded Allergies: Lisinopril (Verified Allergy, Severe, CAN NOT WALK, 12/08/15) Losartan (Verified Allergy, Severe, CAN NOT WALK, 12/08/15) Oxycodone (Verified Adverse Reaction, Unknown, NAUSEA/VOMITING, 06/04/15) Tramadol (Verified Adverse Reaction, Unknown, NAUSEA/VOMITING, 06/04/15) Home Medications Scheduled Amlodipine (Norvasc), 10 MG PO QPM Aspirin (Aspirin Chewable), 324 MG PO QAM Biotin (Biotin), 2 CAP PO BID Bisacodyl (Correctol), 15 MG PO QAM Cholecalciferol (Vitamin D 1000 Unit), 1,000 INTER.UNIT PO BID Clopidogrel Bisulfate (Clopidogrel), 75 MG PO DAILY Coenzyme Q10 (Ubidecarenone) (Co Q 10), 100 MG PO DAILY Docusate Sodium (Colace), 100 MG PO BID Fenofibrate (Tricor ), 145 MG PO QAM Ferrous Sulfate (Iron), 325 MG PO DAILY Folic Acid (Folvite), 1 MG PO QAM Furosemide (Lasix), 40 MG PO Q2D Furosemide (Lasix), 80 MG PO Q2D Gabapentin (Neurontin), 100 MG PO TID Glipizide (Glucotrol), 10 MG PO BID Hydralazine Hcl (Apresoline), 25 MG PO TID Insulin Detemir (Levemir Flextouch), 5 UNITS SC BID Isosorbide Mononitrate Ext Rel (Imdur Ext Rel), 3 TABS PO DAILY Levothyroxine Sodium (Levothyroxine Sodium), 88 MCG PO DAILY Magnesium Oxide (Mag-Ox), 400 MG PO BID Metformin Hcl (Glucophage), 1,000 MG PO BID Multiple Vitamin (Multivitamin), 1 TAB PO QAM Omeprazole (Prilosec), 20 MG PO QAM Potassium Ext Rel (Klor-Con), 20 MEQ PO BID Rosuvastatin Calcium (Crestor), 40 MG PO HS Sotalol Hcl (Betapace), 40 MG PO Q12 Spironolactone (Aldactone), 100 MG PO QAM Venlafaxine Hcl (Effexor), 75 MG PO DAILY Scheduled PRN Acetaminophen (Tylenol), 500 MG PO Q6 PRN for Pain Hydromorphone Hcl (Dilaudid), 2 MG PO q3 hours PRN for Pain Lorazepam (Lorazepam), 0.5 MG PO Q8 PRN for Anxiety Nitroglycerin (Nitrostat), 0.4 MG UT UD PRN for Chest Pain Sennosides (Senokot), 1 TAB PO QAM PRN for Constipation Zolpidem Tartrate (Zolpidem Tartrate), 5 MG PO HS PRN for Sleep Review of Systems Constitutional: No chills, No fatigue, No fever, No problem reported, No sweats , No weakness, No weight loss Eyes: No diplopia, No discharge, No eye pain, No problem reported, No redness, No worsening of vision ENT: No dental problems, No hearing loss, No nasal symptoms, No problem reported, No sore throat, No tinnitus, No trouble swallowing, No unusual epistaxis Respiratory: No cough, No dyspnea at rest, No dyspnea on exertion, No hemoptysis, No problem reported, No shortness of breath, No sputum, No wheezing Cardiovascular: + problem reported (CABG, CHF, CAD, ) Genitourinary - Female: No dysmenorrhea, No dysuria, No hematuria, No menorrhagia, No metrorrhagia, No , No problem reported, No rash, No urinary frequency, No urinary incontinence, No urinary retention, No urinary urgency, No vaginal bleeding, No vaginal discharge, No vaginal itching, No vulvodynia Neurologic: No balance problems, No memory loss, No numbness/tingling, No paralysis, No problem reported, No vertigo, No weakness Psychiatric: + depression symptoms Endocrine: + problem reported (DM) Hematologic / Lymphatic: + abnormal bleeding/bruising, + problem reported (GI bleeding) Physical Exam Vital Signs Date Time Temp Pulse Resp B/P Pulse Ox O2 Delivery O2 Flow Rate FiO2 07/04/16 04:00 Nasal Cannula 3.0 07/04/16 03:26 36.3 92 22 121/73 97 Nasal Cannula 4.0 07/04/16 00:27 37.0 93 18 132/77 95 07/04/16 00:00 Nasal Cannula 3.0 07/03/16 23:37 36.8 94 18 133/77 94 07/03/16 23:25 36.9 93 17 124/70 96 07/03/16 23:00 37.0 90 17 131/74 96 07/03/16 22:54 37.1 94 18 145/75 95 07/03/16 22:41 36.2 92 18 137/74 94 07/03/16 22:19 36.7 87 18 128/70 94 Nasal Cannula 4.0 07/03/16 21:46 36.7 92 16 127/66 95 07/03/16 21:30 92 16 127/66 95 3.0 07/03/16 21:00 36.7 94 20 134/73 95 3.0 07/03/16 20:39 36.6 95 96 2.0 07/03/16 20:30 96 16 120/74 94 Room Air 07/03/16 20:08 36.5 95 16 135/72 97 2.0 07/03/16 19:54 36.6 94 18 128/65 97 2.0 07/03/16 19:41 36.6 90 16 114/58 97 2.0 07/03/16 18:49 88 16 127/58 100 Room Air 07/03/16 18:23 91 20 128/60 99 Nasal Cannula 2.0 07/03/16 18:17 100 Room Air 07/03/16 17:52 93 16 114/64 100 Room Air 07/03/16 17:15 77 24 108/50 07/03/16 16:35 73 07/03/16 15:59 100 Room Air 07/03/16 15:37 37.1 84 18 115/90 100 Room Air General Appearance: WD/WN, + moderate distress Head: normocephalic, atraumatic Eyes: normal inspection, PERRL ENT: hearing grossly normal Neck: supple Respiratory/Chest: lungs clear, no respiratory distress, no accessory muscle use Cardiovascular: regular rate, rhythm, no JVD, no murmur, + systolic murmur Abdomen/GI: normal bowel sounds, non tender, soft, + tenderness (tenderness marnie-umbilical area, no rebound pain, no distended, no guarding, , rectal exam- dark stool, no fresh blood, no mass on rectal wall, no tenderness, ) Extremities/Musculoskelatal: normal inspection (decrease bilt femoral pulse, bilt groin scar, bilt legs skin color- normal, warm, could not feel pop and PD pulse, ), no calf tenderness, no pedal edema, + pertinent finding (lower extremities cool to touch ) Neurologic/Psych: alert, normal mood/affect, oriented x 3 Skin: warm/dry, no rash, + pallor Diagnostics Laboratory Results Results Past 24 Hours Test 07/03/16 16:30 07/03/16 16:48 07/03/16 19:15 07/03/16 19:30 Range/Units White Blood Count 13.87 4.8-10.8 K/uL Red Blood Count 2.69 4.2-5.4 M/uL Hemoglobin 7.6 12.0-16.0 g/dL Hematocrit 23.0 37-47 % Mean Corpuscular Volume 85.5 80-100 fL Mean Corpuscular Hemoglobin 28.3 25-34 pg Mean Corpuscular Hemoglobin Concent 33.0 32-36 g/dl Platelet Count 337 130-400 K/uL Mean Platelet Volume 10.6 7.4-10.4 fL Neutrophils (%) (Auto) 81.3 % Lymphocytes (%) (Auto) 11.6 % Monocytes (%) (Auto) 6.1 % Eosinophils (%) (Auto) 0.1 % Basophils (%) (Auto) 0.2 % Neutrophils # (Auto) 11.27 1.4-6.5 K/uL Lymphocytes # (Auto) 1.61 1.2-3.4 K/uL Monocytes # (Auto) 0.85 0.11-0.59 K/uL Eosinophils # (Auto) 0.01 0-0.5 K/uL Basophils # (Auto) 0.03 0-0.2 K/uL RDW Standard Deviation 41.4 36.4-46.3 fL RDW Coefficient of Variation 13.5 11.5-14.5 % Immature Granulocyte % (Auto) 0.7 % Immature Granulocyte # (Auto) 0.10 0.00-0.02 K/uL Polychromasia 1+ Hypochromasia PRESENT Anisocytosis PRESENT Prothrombin Time 11.9 9.0-12.0 SECONDS Prothromb Time International Ratio 1.1 0.9-1.1 Activated Partial Thromboplast Time 18.0 21.0-31.0 SECONDS Partial Thromboplastin Ratio 0.7 Sodium Level 137 136-145 mmol/L Potassium Level 4.3 3.5-5.1 mmol/L Chloride Level 102 98-107 mmol/L Carbon Dioxide Level 23 21-32 mmol/L Anion Gap 12.0 17.0 16-25 mmol/L Blood Urea Nitrogen 59 7-18 mg/dl Creatinine 1.10 0.60-1.20 mg/dl Est Creatinine Clear Calc Drug Dose 44.5 ml/min Estimated GFR () 58.9 Estimated GFR (Non- 50.8 BUN/Creatinine Ratio 53.2 10-20 Random Glucose 270 70-99 mg/dl Calcium Level 8.5 8.5-10.1 mg/dl Total Bilirubin 0.3 0.2-1 mg/dl Direct Bilirubin < 0.1 0-0.2 mg/dl Aspartate Amino Transf (AST/SGOT) 19 15-37 U/L Alanine Aminotransferase (ALT/SGPT) 27 12-78 U/L Alkaline Phosphatase 55 45-117 U/L Total Creatine Kinase 38 26-192 U/L Creatine Kinase MB 1.0 0.5-3.6 ng/ml Creatine Kinase MB Ratio 2.6 0-3.0 Troponin I < 0.015 0-0.045 ng/ml Total Protein 5.9 6.4-8.2 gm/dl Albumin 2.8 3.4-5.0 gm/dl Lipase 177 73-393 U/L Bedside Hemoglobin 6.8 12.0-16.0 g/dl Bedside Hematocrit 20 37-47 % Bedside Sodium 133 135-144 mEq/L Bedside Potassium 5.6 3.3-5.0 mEq/L Bedside Chloride 99 101-112 mEq/L Bedside Total CO2 24 24-31 mEq/l Bedside Blood Urea Nitrogen 68 7-18 mg/dl Bedside Creatinine 1.0 0.6-1.3 mg/dl Bedside Glucose (other) 274 70-99 mg/dl Bedside Ionized Calcium (Mic) 1.09 1.12-1.32 mmol/l Test 07/03/16 19:39 07/03/16 22:27 07/04/16 00:30 07/04/16 00:48 Range/Units Sodium Level 138 136-145 mmol/L Potassium Level 3.8 3.5-5.1 mmol/L Chloride Level 104 98-107 mmol/L Carbon Dioxide Level 24 21-32 mmol/L Anion Gap 10.0 3-11 mmol/L Blood Urea Nitrogen 52 7-18 mg/dl Creatinine 0.94 0.60-1.20 mg/dl Est Creatinine Clear Calc Drug Dose 52.1 ml/min Estimated GFR () 71.2 Estimated GFR (Non- 61.5 BUN/Creatinine Ratio 55.8 10-20 Random Glucose 316 70-99 mg/dl Calcium Level 8.3 8.5-10.1 mg/dl Creatine Kinase MB 1.9 0.5-3.6 ng/ml Troponin I 0.066 0-0.045 ng/ml Beta-Hydroxybutyric Acid 4.25 0.2-2.81 mg/dL Bedside Glucose 306 286 70-90 mg/dl Urine Color YELLOW Urine Appearance CLEAR CLEAR Urine pH 5.5 4.5-7.5 Urine Specific [place] 1.021 1.000-1.030 Urine Protein 1+ NEG Urine Glucose (UA) TRACE NEG Urine Ketones NEG NEG Urine Occult Blood TRACE NEG Urine Nitrite NEG NEG Urine Bilirubin NEG NEG Urine Urobilinogen NEG NEG Urine Leukocyte Esterase NEG NEG Urine WBC (Auto) 1-5 0-5 /hpf Urine RBC (Auto) 0-4 0-4 /hpf Urine Hyaline Casts (Auto) 1-5 0-5 /lpf Urine Epithelial Cells (Auto) 0-5 0-5 /lpf Urine Bacteria (Auto) NEG NEG Urine Yeast (Auto) NONE PRSENT Test 07/04/16 03:00 07/04/16 05:12 Range/Units Hemoglobin 10.2 9.9 12.0-16.0 g/dL Hematocrit 30.5 29.6 37-47 % Creatine Kinase MB 70.7 108.6 0.5-3.6 ng/ml Creatine Kinase MB Ratio 0-3.0 Troponin I 8.310 16.500 0-0.045 ng/ml White Blood Count 18.10 4.8-10.8 K/uL Red Blood Count 3.46 4.2-5.4 M/uL Mean Corpuscular Volume 85.5 80-100 fL Mean Corpuscular Hemoglobin 28.6 25-34 pg Mean Corpuscular Hemoglobin Concent 33.4 32-36 g/dl RDW Standard Deviation 43.2 36.4-46.3 fL RDW Coefficient of Variation 14.0 11.5-14.5 % Platelet Count 320 130-400 K/uL Mean Platelet Volume 10.8 7.4-10.4 fL Sodium Level 138 136-145 mmol/L Potassium Level 3.9 3.5-5.1 mmol/L Chloride Level 104 98-107 mmol/L Carbon Dioxide Level 25 21-32 mmol/L Anion Gap 9.0 3-11 mmol/L Blood Urea Nitrogen 47 7-18 mg/dl Creatinine 1.10 0.60-1.20 mg/dl Est Creatinine Clear Calc Drug Dose 44.5 ml/min Estimated GFR () 58.9 Estimated GFR (Non- 50.8 BUN/Creatinine Ratio 42.5 10-20 Random Glucose 284 70-99 mg/dl Lactic Acid Level 2.7 0.4-2.0 mmol/L Calcium Level 8.6 8.5-10.1 mg/dl Magnesium Level 2.3 1.8-2.4 mg/dl Microbiology Results 07/04/16 Urine Culture, Received Pending Diagnostic Radiology CT OF THE ABDOMEN AND PELVIS WITHOUT CONTRAST CLINICAL HISTORY: Vomiting. Abdominal pain. GI bleed. COMPARISON STUDY: Renal ultrasound August 06, 2015 and right upper quadrant ultrasound October 17, 2015. TECHNIQUE: Axial images of the abdomen and pelvis were obtained without IV contrast. Images were reviewed in the axial, sagittal, and coronal planes. FINDINGS: Visualized portions of the lower chest demonstrate mild cardiomegaly and a small hiatal hernia. There is no pneumatosis, free air or portal venous gas. Minimal biliary ductal dilatation is likely due to prior cholecystectomy. Evaluation of the abdomen and pelvis is significantly compromised given the lack of IV and oral contrast. There is no evidence for a bowel obstruction. The appendix is normal. Apparent wall thickening of the left colon is likely due to underdistention. There is no definite CT evidence for colitis. Sensitivity for detection of mucosal lesions is diminished given CT technique. There is no hydronephrosis. There are stents within the bilateral renal arteries and the celiac axis. This extensive atherosclerotic plaque of the abdominal aorta at the at the level of the renal arteries. There is suspected occlusion of the abdominal aorta at this level as well as occlusion of the SMA although these vessels are suboptimally assessed on this unenhanced exam. No lymphadenopathy is present. No suspicious skeletal lesions are identified. IMPRESSION: 1. No acute process within the abdomen although evaluation compromised given the lack of contrast. 2. Extensive atherosclerotic plaque within the abdominal aorta and major branch vessels with suspected occlusion of the abdominal aorta due to calcified plaque at the level the renal arteries as well as suspected occlusion of the SMA. Vessel patency is difficult to assess on this unenhanced exam. 3. Apparent wall thickening of the left colon is likely due to underdistention. A nonspecific colitis is considered less likely. No definite bowel wall thickening. No pneumatosis, free air or portal venous gas. Decreased sensitivity for detection of mucosal lesions given CT technique. Impression Assessment and Plan IMP: Acute VT, GI bleeding, severe abdominal aortic calcification, I reviewed CT scan with radiologist- severe abdominal aortic calcification, no bowel edema or pneumotosis I recommend- youth career specialist, GI doctor, vascular surgeon consult, Iv fluid, repeat lactic acid and H/H, every 6 hours, I D/W pt and her about Dx , treatment plan and critical condition, pt's wants to transfer to [facility] for further Dx and treatment, base on pt had all procedures done on [facility]. will F/U, Advanced Directives Existing Living Will: Yes Existing Power of Masonry Contractor: Yes VTE Prophylaxis VTE Risk Assessment Done? Y/N: Yes Risk Level: Moderate Given or contraindicated: T.E.D. Stockings, SCD's, Contraindicated Note Total Time: Critical Care > 74 minutes
--- NOTE | 2016-07-04 07:00 | DIAGNOSTIC IMAGING REPORT ---
ABDOMEN AND PELVIS CT WITH IV CONTRAST CT DOSE: 325.67 mGy.cm HISTORY: Pain ongoing abdominal pain ?mesenteric ischemia TECHNIQUE: Multiaxial CT images of the abdomen and pelvis were performed following the use of intravenous contrast. COMPARISON STUDY: None. FINDINGS: Lung bases demonstrate components of pulmonary vascular congestion versus basilar inflammatory change. Configuration of liver spleen and pancreas appear unremarkable. There is evidence for extensive atherosclerotic change of the abdominal and pelvic arterial vasculature. Stents involving the celiac axis. Mesenteric artery and bilateral renal arteries are present. There is no significant flow through the celiac axis stent. Partial collateral formation may be present. Superior mesenteric artery also shows a stent though there is severe narrowing of that vessel. Significant narrowing of the renal arteries is again noted. Severe atherosclerotic change abdominal aorta with associated narrowing is noted. No evidence for aneurysm. Nonobstructive bowel pattern. IMPRESSION: Severe degenerative change of the abdominal and to lesser extent pelvic arterial vasculature. 2. This is severe narrowing of multiple vessels as described. 3. Bibasilar infiltrative versus pulmonary edematous change. Electronically signed by: Clarence Arevalo M.D. 07/04/2016 6:59 AM Dictated Date/Time: 07/04/2016 6:52 AM
--- NOTE | 2016-07-04 07:06 | DIAGNOSTIC IMAGING REPORT ---
KUB CLINICAL HISTORY: Abdominal pain COMPARISON STUDY: No previous studies for comparison. FINDINGS: There is no pathologic bowel dilatation. There are extensive atheromatous calcifications present. There are upper abdominal stents, likely representing a left renal artery stent and celiac stent. IMPRESSION: 1. No pathologic bowel dilatation 2. Extensive vascular calcification Electronically signed by: Medhat Fernandez M.D. 07/04/2016 7:05 AM Dictated Date/Time: 07/04/2016 7:04 AM
[2016-07-04] MEDS: HYDROmorphone INJ 1 MG/ML SYR IV PRN (07:25)
[2016-07-04] MEDS ORDERED: PERFLUTREN LIPID MICROSPHERE (DEFINITY) IV ONE (07:25)
[2016-07-04 07:26] VITALS: BP 126/70; PULSE 103; TEMP 36.9; O2SAT 98
[2016-07-04] MEDS ORDERED: METOPROLOL TARTRATE 1 MG/ML VIAL IV STA (07:54)
[2016-07-04 08:00] VITALS: O2SAT 98
[2016-07-04] MEDS: INSULIN DETEMIR FLEXPEN/FLEX TOUCH 100 UNITS/ML 3ML SC SCH (08:17)
[2016-07-04] MEDS: INSULIN ASPART 100 UNITS/ML 3 ML PEN SC SCH (08:17)
[2016-07-04] MEDS ORDERED: LEVOTHYROXINE SODIUM INJ 44 MCG in SYRINGE 0 ML IV SCH (09:00)
--- NOTE | 2016-07-04 09:15 | Discharge Summary ---
Discharge Summary Date of Service July 04, 2016. (Rhonda Scott MD) Discharge Summary Admission Date: July 03, 2016 at 19:34 Discharge Date: July 04, 2016 Discharge Disposition: Home Principal Diagnosis: GI bleed, NSTEMI, SMA occlusion Immunizations: Have You Had Influenza Vaccine: Yes History of Tetanus Vaccine?: Yes History of Pneumococcal: Yes History of Hepatitis B Vaccine: Yes Consultations: Gastroenterology, cardiology, General surgery (Rhonda Scott MD) Discharge Disposition: Acute care facility (Angelique Miller MD) Discharge Exam did not have any new episodes of hematemesis or melena overnight. continues to complain of abdominal pain and bilateral lower extremity pain which is somewhat better with pain medications. denies CP/SOB, palpitations currently Review of Systems: Constitutional: No chills, No fever ENT: No hearing loss Respiratory: No cough, No shortness of breath Cardiovascular: No chest pain Abdomen: + pain Musculoskeletal: + problem reported (bialteral lower extremity swelling) Genitourinary - Female: No dysuria, No urinary frequency Neurologic: No memory loss (Rhonda Scott MD) Hospital Course 71 y/o female, with PMHx of HTN, anemia, diastolic CHF, CAD s/p CAGB, NSTEMI, paroxysmal a.fib, T2DM, hyperlipidemia, PVD, carotid stenosis s/o carotid endarterectomy, anxiety, and GERD, who presented to the ED because of coffee ground emesis and dark stools x1 day. Episodes of dark emesis and stools begin last evening. Patient takes a daily iron supplement, but states stools have darken since last evening. She takes Plavix and ASA daily. She denies excessive NSAID or alcohol use. She drinks 3-4 cups of coffee per day. She does have a history of GERD. She denies history of PUD or GI bleed. Patient has chronic bilateral lower extremity pain, which has worsened greatly since last evening. Patient denies any fever, chills, sweats, lightheadedness, dizziness, vision changes, CP, palpitations, edema, SOB, wheezing, cough, abdominal pain, nausea, diarrhea, urinary symptoms, numbness/tingling, weakness, anxiety/depression, active bleeding, or new skin discoloration/changes. Anemia due GI bleed w/ hgb of 7.6 on admission: - Hemoccult positive - IV Protonix drip - Transfusion of 2 units pRBC started in ED -hemoglobin trended 6.8-->10.2-->9.9 - gastroenterology consulted who recommended transfer Acute on chronic abdominal pain: Abdominal CT without contrast: IMPRESSION: 1. No acute process within the abdomen although evaluation compromised given the lack of contrast. 2. Extensive atherosclerotic plaque within the abdominal aorta and major branch vessels with suspected occlusion of the abdominal aorta due to calcified plaque at the level the renal arteries as well as suspected occlusion of the SMA. Vessel patency is difficult to assess on this unenhanced exam. 3. Apparent wall thickening of the left colon is likely due to underdistention. A nonspecific colitis is considered less likely. No definite bowel wall thickening. No pneumatosis, free air or portal venous gas. Decreased sensitivity for detection of mucosal lesions given CT technique. Abdominal pain with contrast : Severe degenerative change of the abdominal and to lesser extent pelvic arterial vasculature. 2. This is severe narrowing of multiple vessels as described. 3. Bibasilar infiltrative versus pulmonary edematous change. lactic acid at 2.7 , trended q6h - vancomycin and Zosyn added - General surgery was consulted who recommended transfer to [facility] - IV Dilaudid PRN Diastolic CHF/CAD s/p CAGB/NSTEMI/paroxysmal a.fib: cardiac enzymes were trended and 0.015-->0.066-->8.3-->16.5 EKG on arrival; Normal sinus rhythm ST & T wave abnormality, consider lateral ischemia Prolonged QT Abnormal ECG When compared with ECG of 08-DEC-2015 21:57, Premature ventricular complexes are no longer Present Premature atrial complexes are no longer Present Criteria for Inferior infarct are no longer Present T wave inversion no longer evident in Inferior leads EKG: at 0800 : Normal sinus rhythm Septal infarct (cited on or before 04-JUL-2016) ST & T wave abnormality, consider lateral ischemia Echo: * Ejection Fraction = 35-40%. * Left ventricular systolic function is moderately reduced. * There is a large inferior and septal wall motion abnormality with akinesis of the segments. * Aortic valve sclerosis mild, without significant aortic valvular stenosis. * There is moderate mitral regurgitation. - Lasix 40 mg Q2D and 80 mg Q2D held due to NPO status- will not add IV Lasix at this time due to low-normal BPs - Hold Imdur 3 tabs PO daily, Sotalol 40 mg q12 hrs, Aldactone 100 mg daily due to NPO status troponin bumped overnight and received nitro patch Was seen by cardiology this morning and recommended transfer, received 2.5 mg Lopressor IV T2DM: - Continue Levemir 5 units BID - BSG ACHS w/ sliding insulin scale - Hold Glipizide 10 mg BID, Metformin 1000 mg BID HTN: - Norvasc 10 mg daily, Hydralazine 25 mg TID held due to NPO status - IV Hydralazine 10 mg PRN Hyperlipidemia/PVD/carotid stenosis s/o carotid endarterectomy: - Hold Fenofibrate 145 mg daily due to NPO status - Hold Plavix 75 mg daily and ASA due to GI bleed - Hold home PO pain medications - IV Dilaudid PRN for pain management Hypothyroidism: IV Synthroid [address] of 88 mcg PO daily Chronic iron deficiency anemia: Iron supplement held due to NPO status Anxiety: - IV Ativan 0.5 mg q6 hrs PRN - Effexor 754 mg daily held due to NPO status Transfer to [facility] due to multiple comorbidities including SMA occlusion, NSTEMI and GI bleed Total Time Spent: Greater than 30 minutes This includes examination of the patient, discharge planning, medication reconciliation, and communication with other providers. (Rhonda Scott MD) Discharge Instructions Please refer to the electronic Patient Visit Report (Discharge Instructions) for additional information. (Rhonda Scott MD) Additional Copies To [facility] Reviewed: Pt Seen/Exam by Me (Angelique Miller MD) History Pt admitted last evening with GI bleeding namely hematemesis and melena, hemeoccult positive and severe anemia, transfused 2 units PRBCs. She also developed NSTEMI overnight. She has a long history of PVD in multiple areas, with multiple stents placed, including in the SMA and celiac arteries, both of which were found to have occlusion or near-occlusion on CTA abd last night. Her GI bleeding limited any anticoagulation or antiplatelet therapy for her acute NSTEMI. Because her vascular and GI specialists were at [facility], and as per 's request, decision was made to transfer her to [facility]. When I saw her briefly on the morning of discharge prior to life flight, she was having continued abd pain, appeared very pale, and felt nauseated. She was seen by Cardiology, Gen Surgery, and GI, all of who recommended and agreed with transfer to [facility]. Dr. Coughlin/my collegaue saw the pt first and called [facility] transfer center and got an accepting physician. I then saw her and completed all necessary paperwork and final orders for transfer. 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 She is in critical condition but stable for transfer at this time. She may require emergent IR or Vascular Surgery capabilities to open up her abdominal arteries. (Angelique Miller MD)
--- NOTE | 2016-07-04 09:15 | ECHOCARDIOGRAM REPORT ---
*NOTICE TO RECEIVING LIBERTARIAN AGENCY This information is strictly Confidential and protected under [place] law. [place] law prohibits you from making any further disclosure of this information unless further disclosure is expressly permitted by the written consent of the person to whom it pertains or is authorized by law. A general authorization for the release of medical or other information is not sufficient for this purpose. Hospital accepts no responsibility if the information is made available to any other person, INCLUDING THE PATIENT. Interpretation Summary * Name: CHRIS BENNETT Study Date: 07/04/2016 06:56 AM BP: 121/73 mmHg * Patient Location: .2T\S\E219\S\1 HR: 91 * : 1945 (M/d/y) Gender: Female Height: 66 in * Age: 71 yrs Ethnicity: [place] Weight: 147 lb * Ordering Physician: Connor Albrecht * Referring Physician: Self, Referred * Performed By: Gianna Lui RCS * * Reason For Study: ELEVATED TROPONIN / CHEST PAIN * BSA: 1.8 m2 * The study was technically adequate. * Compared to prior study, changes are noted. * -- Conclusions -- * Ejection Fraction = 35-40%. * Left ventricular systolic function is moderately reduced. * There is a large inferior and septal wall motion abnormality with akinesis of the segments. * Aortic valve sclerosis mild, without significant aortic valvular stenosis. * There is moderate mitral regurgitation. Procedure Details * A complete two-dimensional transthoracic echocardiogram was performed (2D, M-mode, Doppler and color flow Doppler). * A contrast injection of Definity was performed to improve assessment of LV function. * Contrast was injected into an intravenous site in the right arm. * One vial of Definity ultrasound contrast was diluted in normal saline to a total volume of 10 ml. A total of '2' ml of solution was administered during imaging. * Lot # [id number] of Definity utilized for procedure. * Expiration date AUG 10. * The attending nurse who injected the contrast agent was SANDRA MULTANI RN. Left Ventricle * The left ventricle is normal in size. * There is no thrombus. * The LV wall thickness is mildly increased in segments with normal wall motion. * Ejection Fraction = 35-40%. * Left ventricular systolic function is moderately reduced. * There is a large inferior and septal wall motion abnormality with akinesis of the segments. Right Ventricle * The right ventricle is grossly normal size. * The right ventricular systolic function is qualitatively normal. Atria * The left atrium is mildly dilated. * Right atrial size is normal. Mitral Valve * There is moderate mitral annular calcification. * There is no mitral valve stenosis. * There is moderate mitral regurgitation. Tricuspid Valve * The tricuspid valve is not well visualized. * There is no tricuspid stenosis. * There is mild tricuspid regurgitation. * Doppler findings do not suggest pulmonary hypertension. Aortic Valve * Aortic valve sclerosis mild, without significant aortic valvular stenosis. * The aortic valve is trileaflet. * No hemodynamically significant valvular aortic stenosis. * There is no significant aortic regurgitation. Pulmonic Valve * The pulmonary valve is inadequately visualized, but the Doppler data is adequate for interpretation. * Pulmonic stenosis is absent. * Mild pulmonic valvular regurgitation. Great Vessels * The aortic root is normal size. Pericardium/Pleural * There is no pericardial effusion. Left Ventricular Diastolic Function * Diastolic dysfunction, Grade III (restrictive pattern), consistent with markedly increased left atrial pressure. MMode 2D Measurements and Calculations IVSd 1.4 cm IVSs 1.5 cm LVIDd 4.3 cm LVIDs 3.9 cm LVPWd 1.5 cm LVPWs 1.5 cm IVS/LVPW 0.95 FS 9.1 % EDV(Teich) 82.9 ml ESV(Teich) 66.1 ml EF(Teich) 20.2 % EDV(cubed) 79.2 ml ESV(cubed) 59.5 ml EF(cubed) 24.9 % % IVS thick 8.7 % % LVPW thick 2.4 % LV mass(C)d 236.8 grams LV mass(C)dI 134.9 grams/m\S\2 LV mass(C)s 224.3 grams LV mass(C)sI 127.8 grams/m\S\2 SV(Teich) 16.7 ml SI(Teich) 9.5 ml/m\S\2 SV(cubed) 19.7 ml SI(cubed) 11.2 ml/m\S\2 Ao root diam 4.1 cm Ao root area 13.0 cm\S\2 ACS 1.8 cm LA dimension 3.6 cm LA/Ao 0.87 LVOT diam 2.0 cm LVOT area 3.1 cm\S\2 LVAd ap4 24.3 cm\S\2 LVLd ap4 6.5 cm EDV(MOD-sp4) 75.3 ml EDV(sp4-el) 76.4 ml LVAs ap4 18.0 cm\S\2 LVLs ap4 6.0 cm ESV(MOD-sp4) 45.3 ml ESV(sp4-el) 46.3 ml EF(MOD-sp4) 39.8 % EF(sp4-el) 39.4 % LVAd ap2 25.8 cm\S\2 LVLd ap2 6.6 cm EDV(MOD-sp2) 81.9 ml EDV(sp2-el) 85.0 ml LVAs ap2 20.6 cm\S\2 LVLs ap2 6.3 cm ESV(MOD-sp2) 56.2 ml ESV(sp2-el) 57.2 ml EF(MOD-sp2) 31.4 % EF(sp2-el) 32.8 % LVLd %diff 1.3 % EDV(MOD-bp) 79.9 ml LVLs %diff 5.4 % ESV(MOD-bp) 52.4 ml EF(MOD-bp) 34.5 % SV(MOD-sp4) 30.0 ml SI(MOD-sp4) 17.1 ml/m\S\2 SV(MOD-sp2) 25.7 ml SI(MOD-sp2) 14.6 ml/m\S\2 SV(MOD-bp) 27.6 ml SI(MOD-bp) 15.7 ml/m\S\2 SV(sp4-el) 30.1 ml SI(sp4-el) 17.2 ml/m\S\2 SV(sp2-el) 27.9 ml SI(sp2-el) 15.9 ml/m\S\2 Doppler Measurements and Calculations MV E max thelma 132.7 cm/sec MV A max thelma 48.0 cm/sec MV E/A 2.8 MV P1/2t max thelma 158.9 cm/sec MV P1/2t 68.8 msec MVA(P1/2t) 3.2 cm\S\2 MV dec slope 676.3 cm/sec\S\2 MV dec time 0.13 sec Ao V2 max 95.3 cm/sec Ao max PG 3.6 mmHg Ao max PG (full) 1.5 mmHg SIM(V,A) 2.4 cm\S\2 SIM(V,D) 2.4 cm\S\2 LV V1 max PG 2.2 mmHg LV V1 max 73.9 cm/sec MR max thelma 524.6 cm/sec MR max PG 110.1 mmHg PA V2 max 80.6 cm/sec PA max PG 2.6 mmHg PI max thelma 236.6 cm/sec PI max PG 22.4 mmHg PI dec slope 508.5 cm/sec\S\2 PI P1/2t 136.3 msec TR max thelma 254.2 cm/sec
[2016-07-04 09:16] VITALS: BP 126/70; PULSE 105; TEMP 36.9; O2SAT 98
--- NOTE | 2016-07-04 09:19 | Discharge Instructions ---
Discharge Instructions Date of Service July 04, 2016. Admission Reason for Admission: Gi Bleed Discharge Discharge Diagnosis / Problem: Gi bleed, sma occlusion, NSTEMI Discharge Goals Goal(s): Improve function Activity Recommendations Activity Limitations: per Instructions/Follow-up section . Current Hospital Diet Patient's current hospital diet: Discharge Diet Recommended Diet: N/A (NPO) Pending Studies Studies pending at discharge: yes List of pending studies: urine culture Medical Emergencies . Who to Call and When: Medical Emergencies: If at any time you feel your situation is an emergency, please call 911 immediately. . Non-Emergent Contact Non-Emergency issues call your: Primary Care Provider . . "Provider Documentation" section prepared by Rhonda Scott. . VTE Core Measure Inpt VTE Proph given/why not?: Viola Stockings, SCD's, Contraindicated
--- NOTE | 2016-07-04 09:24 | Gastrointestinal Consultation ---
Gastrointestinal Consultation Date of Consultation: July 04, 2016 Attending Physician: Radha Consulting Physician: Jose Reason for Consultation: coffee ground emesis, melena History of Present Illness Patient is a 71 year old female w/ PMH significant for GERD, HTN, CHF, anemia. T2DM, NSTEMI, CAD s/p CABG, a.fiib, dyslipidemia, PVD, anxiety and carotid stenosis s/o carotid endarterectomy who presents to the ED following one day of epigastric and umbilical abdominal pain, coffee ground emesis and melena. She is on PO iron. She was admitted through the ED. She was seen and evaluated this AM. History is obtained from pt and son. She reports abdominal pain is now resolved. She is not having any epigastric pain or symptoms of reflux presently. + nausea. No coffee ground emesis or melena since admission. Rectal exam in ED with dark stools which were heme + HGB on arrival 7.6 --> 2 units -- > 10.2 --> 9.9. Acute PR with troponin 16 and EKG w/ ischemia. ROS limited due to pt status. She was evaluated by surgery this AM who suggests transfer - she was accepted through [facility] and is in the process of being transferred. CT abd/pelvis 07/04/16: Lung bases demonstrate components of pulmonary vascular congestionversus basilar inflammatory change. Configuration of liver spleen and pancreas appear unremarkable. There is evidence for extensive atherosclerotic change of the abdominal and pelvic arterial vasculature. Stents involving the celiac axis. Mesenteric artery and bilateral renal arteries are present. There is no significant flow through the celiac axis stent. Partial collateral formation may be present. Superior mesenteric artery also shows a stent though there is severe narrowing of that vessel. Significant narrowing of the renal arteries is again noted. Severe atherosclerotic change abdominal aorta with associated narrowing is noted. No evidence for aneurysm. Nonobstructive bowel pattern. Chest XR 07/04/16: Interval development of asymmetric interstitial edema right greater than left. No evidence of free intraperitoneal air KUB 07/04/16:There is no pathologic bowel dilatation. There are extensive atheromatous calcifications present. There are upper abdominal stents, likely representing a left renal artery stent and celiac stent. CT abd/pelvis 07/03/16: No acute process within the abdomen although evaluation compromised given the lack of contrast. Extensive atherosclerotic plaque within the abdominal aorta and major branch vessels with suspected occlusion of the abdominal aorta due to calcified plaque at the level the renal arteries as well as suspected occlusion of the SMA. Vessel patency is difficult to assess on this unenhanced exam. Apparent wall thickening of the left colon is likely due to underdistention. A nonspecific colitis is considered less likely. No definite bowel wall thickening. No pneumatosis, free air or portal venous gas. Decreased sensitivity for detection of mucosal lesions given CT technique. Past Medical/Surgical History Medical Problems: (1) CHF (congestive heart failure) Status: Acute (2) Gastrointestinal bleed Status: Acute (3) Non-ST elevation PR (NSTEMI) Status: Acute (4) Precordial chest pain Status: Acute (5) Precordial chest pain Status: Acute Family History Hypertension Social History Smoking Status: Former Smoker Drug Use: none Marital Status: Housing Status: lives with family Occupation Status: employed Allergies Coded Allergies: Lisinopril (Verified Allergy, Severe, CAN NOT WALK, 12/08/15) Losartan (Verified Allergy, Severe, CAN NOT WALK, 12/08/15) Oxycodone (Verified Adverse Reaction, Unknown, NAUSEA/VOMITING, 06/04/15) Tramadol (Verified Adverse Reaction, Unknown, NAUSEA/VOMITING, 06/04/15) Current Medications Home Meds and Scripts Medications Dose Route/Sig Max Daily Dose Days Date Category Dose Instructions Effexor (Venlafaxine Hcl) 75 Mg Tab 75 Mg PO DAILY 07/03/16 Reported Levemir Flextouch (Insulin Detemir) 100 Unit/Ml Inj 5 Units SC BID 07/03/16 Reported Levothyroxine Sodium 88 Mcg Tab 88 Mcg PO DAILY 07/03/16 Reported Klor-Con (Potassium Chloride) 20 Meq Tabcr 20 Meq PO BID 07/03/16 Reported Apresoline (Hydralazine Hcl) 25 Mg Tab 25 Mg PO TID 30 12/09/15 Rx Lasix (Furosemide) 40 Mg Tab 80 Mg PO Q2D 12/08/15 Reported Lasix (Furosemide) 40 Mg Tab 40 Mg PO Q2D 12/08/15 Reported Iron (Ferrous Sulfate) 325 Mg Tab 325 Mg PO DAILY 12/08/15 Reported Colace (Docusate Sodium) 100 Mg Cap 100 Mg PO BID 10/17/15 Reported Tylenol (Acetaminophen) 500 Mg Tab 500 Mg PO Q6 PRN 10/17/15 Reported Dilaudid (Hydromorphone Hcl) 2 Mg Tab 2 Mg PO Q3 HOURS PRN 10/17/15 Reported Zolpidem Tartrate 5 Mg Tab 5 Mg PO HS PRN 10/17/15 Reported Co Q 10 (Coenzyme Q10 (Ubidecarenone)) 100 Mg Cap 100 Mg PO DAILY 10/17/15 Reported Lorazepam 0.5 Mg Tab 0.5 Mg PO Q8 PRN 10/17/15 Reported Glucophage (Metformin Hcl) 1,000 Mg Tab 1,000 Mg PO BID 10/17/15 Reported Mag-Ox (Magnesium Oxide) 400 Mg Tab 400 Mg PO BID 10/17/15 Reported Neurontin (Gabapentin) 100 Mg Cap 100 Mg PO TID 10/17/15 Reported Norvasc (Amlodipine Besylate) 10 Mg Tab 10 Mg PO QPM 10/17/15 Reported Clopidogrel (Clopidogrel Bisulfate) 75 Mg Tab 75 Mg PO DAILY 10/17/15 Reported Imdur Ext Rel (Isosorbide Mononitrate) 60 Mg Ertab 3 Tabs PO DAILY 10/17/15 Reported Correctol (Bisacodyl) 5 Mg Tab 15 Mg PO QAM 03/07/15 Reported Crestor (Rosuvastatin Calcium) 40 Mg Tab 40 Mg PO HS 03/07/15 Reported Folvite (Folic Acid) 1 Mg Tab 1 Mg PO QAM 03/07/15 Reported Multivitamin (Multiple Vitamin) 1 Tab Tab 1 Tab PO QAM 12/04/14 Reported one day essential tabs Biotin 5,000 Mcg Cap 2 Cap PO BID 12/04/14 Reported Senokot (Sennosides) 8.6 Mg Tab 1 Tab PO QAM PRN 09/25/11 Reported Betapace (Sotalol Hcl) 80 Mg Tab 40 Mg PO Q12 09/25/11 Reported Nitrostat (Nitroglycerin) 0.4 Mg Sub 0.4 Mg UT UD PRN 09/25/11 Reported Vitamin D 1000 Unit (Cholecalciferol) 1,000 Unit Cap 1,000 Inter.unit PO BID 09/25/11 Reported Glucotrol (Glipizide) 10 Mg Tab 10 Mg PO BID 09/25/11 Reported Aspirin Chewable (Aspirin) 81 Mg Chew 324 Mg PO QAM 09/25/11 Reported 4 tablet dose Tricor (Fenofibrate) 145 Mg Tab 145 Mg PO QAM 01/28/09 Reported Prilosec (Omeprazole) 20 Mg Capcr 20 Mg PO QAM 01/28/09 Reported Aldactone (Spironolactone) 100 Mg Tab 100 Mg PO QAM 01/28/09 Reported Review of Systems Constitutional: No fever Cardiac: No chest pain Abdomen: No diarrhea, No nausea, No pain, No vomiting Physical Exam Date Time Temp Pulse Resp B/P Pulse Ox O2 Delivery O2 Flow Rate FiO2 07/04/16 08:19 105 07/04/16 07:26 36.9 103 20 126/70 98 Nasal Cannula 3.0 07/04/16 04:00 Nasal Cannula 3.0 07/04/16 03:26 36.3 92 22 121/73 97 Nasal Cannula 4.0 07/04/16 00:27 37.0 93 18 132/77 95 07/04/16 00:00 Nasal Cannula 3.0 07/03/16 23:37 36.8 94 18 133/77 94 07/03/16 23:25 36.9 93 17 124/70 96 07/03/16 23:00 37.0 90 17 131/74 96 07/03/16 22:54 37.1 94 18 145/75 95 07/03/16 22:41 36.2 92 18 137/74 94 07/03/16 22:19 36.7 87 18 128/70 94 Nasal Cannula 4.0 07/03/16 21:46 36.7 92 16 127/66 95 07/03/16 21:30 92 16 127/66 95 3.0 07/03/16 21:00 36.7 94 20 134/73 95 3.0 07/03/16 20:39 36.6 95 96 2.0 07/03/16 20:30 96 16 120/74 94 Room Air 07/03/16 20:08 36.5 95 16 135/72 97 2.0 07/03/16 19:54 36.6 94 18 128/65 97 2.0 07/03/16 19:41 36.6 90 16 114/58 97 2.0 07/03/16 18:49 88 16 127/58 100 Room Air 07/03/16 18:23 91 20 128/60 99 Nasal Cannula 2.0 07/03/16 18:17 100 Room Air 07/03/16 17:52 93 16 114/64 100 Room Air 07/03/16 17:15 77 24 108/50 07/03/16 16:35 73 07/03/16 15:59 100 Room Air 07/03/16 15:37 37.1 84 18 115/90 100 Room Air General Appearance: + mild distress Eyes: PERRL ENT: hearing grossly normal Neck: supple Respiratory/Chest: lungs clear, normal breath sounds, no respiratory distress, no accessory muscle use Cardiovascular: regular rate, rhythm, no edema, no gallop, + systolic murmur Abdomen: normal bowel sounds, soft, no organomegaly, + tenderness (mild epigastric tenderness) Neurologic/Psych: alert Skin: normal color, no jaundice, warm/dry Laboratory Results Last 24 Hours Test 07/03/16 16:30 07/03/16 16:48 07/03/16 19:15 07/03/16 19:30 White Blood Count 13.87 K/uL Red Blood Count 2.69 M/uL Hemoglobin 7.6 g/dL Hematocrit 23.0 % Mean Corpuscular Volume 85.5 fL Mean Corpuscular Hemoglobin 28.3 pg Mean Corpuscular Hemoglobin Concent 33.0 g/dl Platelet Count 337 K/uL Mean Platelet Volume 10.6 fL Neutrophils (%) (Auto) 81.3 % Lymphocytes (%) (Auto) 11.6 % Monocytes (%) (Auto) 6.1 % Eosinophils (%) (Auto) 0.1 % Basophils (%) (Auto) 0.2 % Neutrophils # (Auto) 11.27 K/uL Lymphocytes # (Auto) 1.61 K/uL Monocytes # (Auto) 0.85 K/uL Eosinophils # (Auto) 0.01 K/uL Basophils # (Auto) 0.03 K/uL RDW Standard Deviation 41.4 fL RDW Coefficient of Variation 13.5 % Immature Granulocyte % (Auto) 0.7 % Immature Granulocyte # (Auto) 0.10 K/uL Polychromasia 1+ Hypochromasia PRESENT Anisocytosis PRESENT Prothrombin Time 11.9 SECONDS Prothromb Time International Ratio 1.1 Activated Partial Thromboplast Time 18.0 SECONDS Partial Thromboplastin Ratio 0.7 Sodium Level 137 mmol/L Potassium Level 4.3 mmol/L Chloride Level 102 mmol/L Carbon Dioxide Level 23 mmol/L Anion Gap 12.0 mmol/L 17.0 mmol/L Blood Urea Nitrogen 59 mg/dl Creatinine 1.10 mg/dl Est Creatinine Clear Calc Drug Dose 44.5 ml/min Estimated GFR () 58.9 Estimated GFR (Non- 50.8 BUN/Creatinine Ratio 53.2 Random Glucose 270 mg/dl Calcium Level 8.5 mg/dl Total Bilirubin 0.3 mg/dl Direct Bilirubin < 0.1 mg/dl Aspartate Amino Transf (AST/SGOT) 19 U/L Alanine Aminotransferase (ALT/SGPT) 27 U/L Alkaline Phosphatase 55 U/L Total Creatine Kinase 38 U/L Creatine Kinase MB 1.0 ng/ml Creatine Kinase MB Ratio 2.6 Troponin I < 0.015 ng/ml Total Protein 5.9 gm/dl Albumin 2.8 gm/dl Lipase 177 U/L Bedside Hemoglobin 6.8 g/dl Bedside Hematocrit 20 % Bedside Sodium 133 mEq/L Bedside Potassium 5.6 mEq/L Bedside Chloride 99 mEq/L Bedside Total CO2 24 mEq/l Bedside Blood Urea Nitrogen 68 mg/dl Bedside Creatinine 1.0 mg/dl Bedside Glucose (other) 274 mg/dl Bedside Ionized Calcium (Mic) 1.09 mmol/l Test 07/03/16 19:39 07/03/16 22:27 07/04/16 00:30 07/04/16 00:48 Sodium Level 138 mmol/L Potassium Level 3.8 mmol/L Chloride Level 104 mmol/L Carbon Dioxide Level 24 mmol/L Anion Gap 10.0 mmol/L Blood Urea Nitrogen 52 mg/dl Creatinine 0.94 mg/dl Est Creatinine Clear Calc Drug Dose 52.1 ml/min Estimated GFR () 71.2 Estimated GFR (Non- 61.5 BUN/Creatinine Ratio 55.8 Random Glucose 316 mg/dl Calcium Level 8.3 mg/dl Creatine Kinase MB 1.9 ng/ml Troponin I 0.066 ng/ml Beta-Hydroxybutyric Acid 4.25 mg/dL Bedside Glucose 306 mg/dl 286 mg/dl Urine Color YELLOW Urine Appearance CLEAR Urine pH 5.5 Urine Specific [place] 1.021 Urine Protein 1+ Urine Glucose (UA) TRACE Urine Ketones NEG Urine Occult Blood TRACE Urine Nitrite NEG Urine Bilirubin NEG Urine Urobilinogen NEG Urine Leukocyte Esterase NEG Urine WBC (Auto) 1-5 /hpf Urine RBC (Auto) 0-4 /hpf Urine Hyaline Casts (Auto) 1-5 /lpf Urine Epithelial Cells (Auto) 0-5 /lpf Urine Bacteria (Auto) NEG Urine Yeast (Auto) Test 07/04/16 03:00 07/04/16 05:12 07/04/16 07:09 Hemoglobin 10.2 g/dL 9.9 g/dL Hematocrit 30.5 % 29.6 % Creatine Kinase MB 70.7 ng/ml 108.6 ng/ml Creatine Kinase MB Ratio Troponin I 8.310 ng/ml 16.500 ng/ml White Blood Count 18.10 K/uL Red Blood Count 3.46 M/uL Mean Corpuscular Volume 85.5 fL Mean Corpuscular Hemoglobin 28.6 pg Mean Corpuscular Hemoglobin Concent 33.4 g/dl RDW Standard Deviation 43.2 fL RDW Coefficient of Variation 14.0 % Platelet Count 320 K/uL Mean Platelet Volume 10.8 fL Sodium Level 138 mmol/L Potassium Level 3.9 mmol/L Chloride Level 104 mmol/L Carbon Dioxide Level 25 mmol/L Anion Gap 9.0 mmol/L Blood Urea Nitrogen 47 mg/dl Creatinine 1.10 mg/dl Est Creatinine Clear Calc Drug Dose 44.5 ml/min Estimated GFR () 58.9 Estimated GFR (Non- 50.8 BUN/Creatinine Ratio 42.5 Random Glucose 284 mg/dl Lactic Acid Level 2.7 mmol/L Calcium Level 8.6 mg/dl Magnesium Level 2.3 mg/dl Bedside Glucose 299 mg/dl Impression Patient is a 71 year old female w/ active PR and history of coffee ground emesis and melena. No episodes of continued GI bleeding while she was admitted. Differentials include ischemia, PUD, gastritis etc. Plan Agree with transfer to tertiary care. Conservative management as she remains stable from a GI standpoint Trend H&H Transfuse as needed PPI drip Monitor stools and output for s/s GI bleeding Please call with any acute changes. Patient transferred prior to afternoon rounds.
--- NOTE | 2016-07-04 10:43 | CARDIOLOGY CONSULTATION ---
DATE OF CONSULTATION: 07/04/2016 DATE OF CONSULTATION: 07/04/2016. REFERRING PHYSICIAN: Dr. Vargas. REASON FOR CONSULTATION: Elevated troponin, peripheral vascular disease, coronary disease. CHIEF COMPLAINT ON ADMISSION: Nausea, vomiting, bilateral leg pain. HISTORY OF PRESENT ILLNESS: Ms. Lindsay is a complex 71-year-old female with severe diffuse peripheral vascular disease, coronary disease, carotid vascular disease as noted below. She came to the ER with persistent nausea and vomiting. Melanotic stools reported per family. Point of care hemoglobin was below 7 and the patient received 2 units of packed red blood cells. Repeat hemoglobin is 9.9. She is experiencing significant and severe abdominal and epigastric pain overnight. Initially, she denied any chest discomfort; however, has reported intermittent chest pain over the past few hours. Her troponin was initially undetectable has trended upward to 16.50. Her initial ECG demonstrates sinus rhythm with lateral ST-T wave abnormality. Her repeat ECG performed this morning demonstrates sinus rhythm with ST depressions in 1, aVL, V5, V6 as well as evidence of septal infarct. Her repeat bedside echo demonstrates severe systolic dysfunction with ejection fraction of 30% with inferior, septal, anterior septal akinesis. The patient was seen and examined at the bedside. Currently, reports significant abdominal pain and nausea. Her pain has been treated with intravenous Dilaudid which has been ineffective. Denies orthopnea or PND. No lower extremity edema. Family is present at bedside. They offer no other concerns/complaints at this time. REVIEW OF SYSTEMS: Significant for abdominal pain, bilateral lower extremity pain, intermittent chest pain. Comprehensive 10 system review is otherwise negative. PAST MEDICAL HISTORY: 1. Longstanding coronary artery disease, status post coronary artery bypass grafting August 2003 with BREWER to the LAD, SVG to diagonal, SVG to obtuse marginal, and SVG to posterolateral branch vessel. 2. Most recent catheterization in 2011 demonstrating severe [place] vessel disease with patent saphenous vein graft to diagonal, first posterolateral branch SV graft to the first marginal and BREWER graft to the LAD. 3. Severe peripheral vascular disease with left subclavian stenosis and carotid steal syndrome, status post left-sided carotid endarterectomy, status post urgent left carotid endarterectomy 10/14/2015, bilateral iliac stenting 2004, right common femoral and superficial femoral endarterectomy with patch angioplasty left common femoral artery endarterectomy, patch angioplasty 2011. 4. Open left common iliac stenting, open left superficial femoral artery stenting with aortogram 2014. 5. Infrarenal aortic occlusion. 6. Bilateral renal artery stenting in 2009. 7. Mesenteric stenosis and intestinal angina. 8. Paroxysmal atrial fibrillation on chronic sotalol. 9. Chronic iron deficiency anemia. 10. Postoperative non-ST elevation DC September 2015 after carotid endarterectomy complicated by acute congestive heart failure. 11. Minimal access points for coronary assessment with bilateral subclavian disease and infrarenal aortic occlusion. 12. Diabetes. 13. Dyslipidemia. 14. Hypertension. FAMILY HISTORY: Listed as hypertension, although noncontributory at this point. SOCIAL HISTORY: Former tobacco abuse. She is , lives with her . ALLERGIES: LISINOPRIL, LOSARTAN, OXYCODONE, TRAMADOL. HOME MEDICATIONS: 1. Amlodipine 10 mg daily. 2. Aspirin 325 daily. 3. Biotin capsule 2 tablets twice daily. 4. Vitamin D daily. 5. Plavix 75 daily. 6. Coenzyme Q10 100 mg daily. 7. Colace 100 mg b.i.d. 8. Tricor 145 mg daily. 9. Ferrous sulfate 325 mg daily. 10. Folic acid 1 mg daily. 11. Furosemide 40 mg every other day alternating with 80 mg. 12. Neurontin 100 mg t.i.d. 13. Glucotrol 10 mg b.i.d. 14. Hydralazine 25 mg t.i.d. 15. Levemir 5 units subQ b.i.d. 16. Isosorbide monohydrate 180 mg daily. 17. Synthroid 88 mcg daily. 18. Magnesium oxide 400 mg twice daily. 19. Metformin 1000 mg b.i.d. 20. Multivitamin daily. 21. Prilosec 20 mg daily. 22. Potassium chloride 20 mEq twice daily. 23. Crestor 40 mg daily. 24. Sotalol 40 mg twice daily. 25. Aldactone 100 mg daily. 26. Effexor 75 mg daily. 27. Tylenol 500 mg every 6 hours as needed. 28. Dilaudid 2 mg every 3 hours as needed. 29. Ativan 0.5 mg every 8 hours as needed. 30. Nitrostat as needed. 31. Senokot as needed. 32. Ambien as needed. LABORATORY DATA: Sodium 138, potassium 3.9, chloride 104, CO2 is 104, CO2 is 25, BUN is 47, creatinine is 1.10. Lactic acid is 2.7. White blood cell count is 18.10, hemoglobin is 9.9, platelet count is 320. Initial point of care troponin 6.8, reported heme positive stool per rectal exam. Telemetry demonstrates sinus rhythm, episode of nonsustained ventricular tachycardia recorded. PHYSICAL EXAMINATION: VITAL SIGNS: Temperature is 36.9 degrees centigrade, pulse is 100 beats per minute and regular, respiratory rate 20 breaths per minute, blood pressure 126/70, SaO2 is 98% on 3 liters. GENERAL: The patient is acutely distressed. She is uncomfortable, complaining of abdominal pain. HEAD, EYES, EARS, NOSE, AND THROAT: Mucous membranes are dry. No scleral icterus. Conjunctivae pink. NECK: Supple. No JVD or HJR. No carotid bruit. HEART: Regular with a normal S1 and S2, no murmur, rub, or gallop. LUNGS: Clear without rales, rhonchi or wheeze. ABDOMEN: Diffusely tender and nondistended. No rebound or guarding. Normal bowel sounds. EXTREMITIES: Warm and dry. There is no edema. NEUROLOGIC EXAMINATION: Demonstrates no focal motor deficit. FINAL IMPRESSION: 1. A 71-year-old female admitted with abdominal pain, nausea, vomiting, melanotic stools and symptomatic anemia. Hemoglobin improved status post 2 units packed red blood cells. No symptoms of ongoing blood loss currently. Acute mesenteric ischemia suspected. 2. [id number] elevation myocardial infarction with history of chronic severe coronary disease with coronary artery bypass grafting in 2004 as described above. Echocardiogram demonstrates mild decline in LV systolic function without new regional wall motion abnormality. Type 2 versus type 1 event considered. The patient is not a candidate for anticoagulation at this time. She is a poor candidate overall for repeat catheterization with documented minimal target access points per most recent catheterization in 2012. 3. Ongoing abdominal pain, suspect mesenteric ischemia. 4. Severe peripheral vascular disease with known distal aortic occlusion as described above. 5. Nonsustained ventricular tachycardia. 6. History of paroxysmal atrial fibrillation, maintained sinus rhythm with sotalol. 7. Severe left ventricular systolic dysfunction with compensated heart failure. PLAN AND RECOMMENDATIONS: Overall, the patient's condition is critical. Treatment options are limited due to active GI bleeding and severe peripheral vascular disease as described above. She is hemodynamically stable and her blood pressure is adequate, I will give her 2.5 mg of intravenous Lopressor now given episode of nonsustained ventricular tachycardia and history of atrial fibrillation. Discussed case with the hospitalist who is planning transfer to [facility]. A repeat echo has been performed as described above. Dual antiplatelet therapy will be placed on hold currently. Anticoagulation currently contraindicated. Will continue to follow during hospitalization. Poor prognosis. Thank you for allowing me to take part in the care of your patient. PABLO
== END 2016-07-04 09:40 | disposition short-term general hospital (02) | DRG 281 ==
LOC: CANRESERV → ENRESERVDT → ENRESERVTM → EDBD 15:31 → C.EDA 15:33 → C.2T 19:34
PROVIDERS: ADMIT Hospitalist; ATTEND Family Medicine
DX: I21.4 Non-ST elevation (NSTEMI) myocardial infarction (principal); K92.2 Gastrointestinal hemorrhage, unspecified; K55.1 Chronic vascular disorders of intestine; I50.32 Chronic diastolic (congestive) heart failure; R23.1 Pallor; I11.0 Hypertensive heart disease with heart failure; D50.0 Iron deficiency anemia secondary to blood loss (chronic); I48.0 Paroxysmal atrial fibrillation; K21.9 Gastro-esophageal reflux disease without esophagitis; F41.9 Anxiety disorder, unspecified; F32.9 Major depressive disorder, single episode, unspecified; E78.5 Hyperlipidemia, unspecified; E11.51 Type 2 diabetes mellitus with diabetic peripheral angiopathy without gangrene; I25.10 Atherosclerotic heart disease of native coronary artery without angina pectoris; I25.2 Old myocardial infarction; Z95.1 Presence of aortocoronary bypass graft; Z87.891 Personal history of nicotine dependence; Z82.49 Family history of ischemic heart disease and other diseases of the circulatory system; Z79.82 Long term (current) use of aspirin; Z79.899 Other long term (current) drug therapy; Z79.84 Long term (current) use of oral hypoglycemic drugs; Z88.8 Allergy status to other drugs, medicaments and biological substances; Z88.5 Allergy status to narcotic agent; Z90.49 Acquired absence of other specified parts of digestive tract; Z79.02 Long term (current) use of antithrombotics/antiplatelets